=== PATIENT | male | born 1950 | race Two or more races ===

== ENCOUNTER 2016-08-02 16:50 | Inpatient (IN) | payer OTHER, MEDICARE ==
[~2016-08-02] VITALS: Ht 185.4 cm; Wt 99.0 kg
[~2016-08-02 16:50] MED LIST: BACT800T5 PO; CLIN1CAP5 PO; HYDR-3533 PO; METF-324 PO; PRIN20TA2 PO
[2016-08-13] VITALS (17 sets, daily range): BP systolic 125–162; BP diastolic 74–95; PULSE 75–112; RESP 18–20; TEMP 97.7–98.7; O2SAT 95–96
[2016-08-13] MEDS ORDERED: ceFAZolin 1,000 MG/NS 100 ML IV SCH ×2 (06:15)
[2016-08-13] MEDS ORDERED: INSULIN HUMAN REGULAR 1,000 UNITS/10 ML VIAL SQ PRN (06:30)
[2016-08-13] MEDS ORDERED: SODIUM CHLORID 0.9% 500 ML IV PRN (06:30)
[2016-08-13] MEDS ORDERED: LACTATED RINGER'S 1000 ML IV PRN (06:30)
[2016-08-13] MEDS ORDERED: CHLORHEXIDINE GLUCONATE 2 % 1 PACK (2 CLOTHS) TOPICAL PRN (06:30)
[2016-08-13] MEDS ORDERED: METOPROLOL TARTRATE 25 MG TAB PO PRN (06:30)
[2016-08-13] MEDS ORDERED: POVIDONE IODINE 5% (ANTISEPSIS KIT) 4 APPLICATIONS EACH NARE PRN (06:30)
[2016-08-13 06:48] LABS: AUTOMATED NEUTROPHIL # 8.7 TH/MM3 (1.8-7.7); BASOPHIL % 0.4 % (0.0-2.0); EOSINOPHIL # 0.2 TH/MM3 (0-0.4); EOSINOPHIL % 1.6 % (0.0-4.0); HEMATOCRIT 43.3 % (39.0-51.0); HEMO FLAGS DIFF FINAL; LYMPH % 18.9 % (9.0-44.0); LYMPHOCYTE # 2.3 TH/MM3 (1.0-4.8); MEAN CELL VOLUME 92.5 FL (80.0-100.0); MEAN CORPUSCULAR HGB CONC 32.4 % (32.0-36.0); NEUT % 71.1 % (16.0-70.0); PLATELET COUNT 231 TH/MM3 (150-450); RED BLOOD COUNT 4.68 MIL/MM3 (4.50-5.90); RED CELL DISTRIBUTION WIDTH 13.5 % (11.6-17.2); WHITE BLOOD COUNT 12.3 TH/MM3 (4.0-11.0)
[2016-08-13] MEDS ORDERED: METF500T PO (06:49)
[2016-08-13] MEDS ORDERED: BENA40TA PO (06:58)
[2016-08-13] MEDS ORDERED: NIFE60TA58 PO (06:58)
[2016-08-13] MEDS ORDERED: GLIM2TAB PO (06:58)
[2016-08-13] MEDS ORDERED: DICL50TA3 PO (06:58)
[2016-08-13] MEDS ORDERED: ATOR20TA15 PO (06:58)
[2016-08-13 06:59] LABS: APTT (PATIENT) 27.7 SEC (24.3-30.1); PROTHROMBIN TIME - PATIENT 10.8 SEC (9.8-11.6)
[2016-08-13] MEDS ORDERED: DICL50TA PO (06:59)
[2016-08-13 07:05] LABS: BICARBONATE 26.1 MEQ/L (21.0-32.0); POTASSIUM 4.2 MEQ/L (3.5-5.1)
[2016-08-13] MEDS ORDERED: HEPARIN SODIUM - IV 10,000 UNITS/10 ML VIAL ONE (07:05)
[2016-08-13] MEDS ORDERED: BUPIVACAINE/EPINEPHRINE 0.5% 50 ML VIAL ONE (07:05)
[2016-08-13] MEDS ORDERED: HEPARIN SODIUM - SQ 10,000 UNITS/ML VIAL ONE (07:05)
[2016-08-13] MEDS ORDERED: PROTAMINE SULFATE 50 MG/5 ML VIAL ONE (07:06)
[2016-08-13] MEDS ORDERED: ACETAMINOPHEN 1000 MG/100 ML VIAL IV ONE (07:33)
[2016-08-13] MEDS ORDERED: MIDAZOLAM HCL 2 MG/2 ML VIAL ONE (07:33)
[2016-08-13] MEDS ORDERED: FAMOTIDINE 20 MG/2 ML VIAL ONE (07:33)
[2016-08-13] MEDS ORDERED: fentaNYL CITRATE 250 MCG/5 ML AMP ONE (07:34)
[2016-08-13] MEDS ORDERED: HYDROmorphone HCL PF 2 MG/ML VIAL ONE (09:00)
[2016-08-13] MEDS ORDERED: IOHEXOL 300 MG/ML 50 ML BTL (for RAD DIAG) OTHER ONE (10:18)
[2016-08-13] MEDS ORDERED: ASPIRIN EC 81 MG TABEC ONE (10:58)
[2016-08-13] MEDS ORDERED: CLOPIDOGREL 300 MG TAB ONE (10:58)
[2016-08-13] MEDS ORDERED: ENOXAPARIN SODIUM 30 MG/0.3 ML SYRINGE ONE (11:13)
[2016-08-13] MEDS ORDERED: ACETAMINOPHEN/HYDROcodone 325 MG/5 MG TAB PO PRN (11:30)
[2016-08-13] MEDS ORDERED: MORPHINE SULFATE 4 MG/ML INJ IV PRN (11:30)
[2016-08-13] MEDS ORDERED: SODIUM CHLORIDE 0.9% FLUSH 10 ML FLUSH IV FLUSH PRN (11:30)
[2016-08-13] MEDS ORDERED: ACETAMINOPHEN 325 MG TAB PO PRN (11:30)
[2016-08-13] MEDS ORDERED: ONDANSETRON HCL 4 MG/2 ML VIAL IV PUSH PRN (11:30)
[2016-08-13] MEDS ORDERED: LACTATED RINGER'S 1000 ML INJ 1,000 ML IV ONE (12:00)
[2016-08-13] MEDS ORDERED: PROPOFOL 200 MG/20 ML AMP IV ONE (12:00)
[2016-08-13] MEDS ORDERED: PHENYLEPH/NS 1000 MCG/10 ML SYR IV ONE (12:00)
[2016-08-13] MEDS ORDERED: CLOPIDOGREL 300 MG TAB PO ONE (12:00)
[2016-08-13] MEDS ORDERED: ONDANSETRON HCL 4 MG/2 ML VIAL IV PUSH ONE (12:00)
[2016-08-13] MEDS ORDERED: ENOXAPARIN SODIUM 30 MG/0.3 ML SYRINGE SQ SCH (12:00)
[2016-08-13] MEDS ORDERED: DO NOT ADM ANY ANTICOAGULANT DRUGS PRN (12:00)
[2016-08-13] MEDS ORDERED: NEOSTIGMINE 3 MG/3 ML SYR IV ONE (12:00)
[2016-08-13] MEDS ORDERED: ASPIRIN EC 81 MG TABEC PO ONE (12:00)
[2016-08-13] MEDS: GLIMEPIRIDE 2 MG TAB PO SCH (12:33)
[2016-08-13] MEDS: NIFEdipine 60 MG SUSTAINED RELEASE TAB PO SCH (12:33)
[2016-08-13] MEDS: LISINOPRIL 20 MG TAB PO SCH (12:33)
[2016-08-13] MEDS ORDERED: DEXTROSE 50% IN WATER 50 ML VIAL(D50) IV PUSH PRN (12:45)
[2016-08-13] MEDS ORDERED: GLUCAGON 1 MG/ML VIAL OTHER PRN (12:45)
[2016-08-13] MEDS ORDERED: PLEASE DISCONTINUE PREVIOUS SUPPLEMENTAL SCALE INSULIN ORDERS ONE (12:45)
--- NOTE | 2016-08-13 14:34 | EKG ---
Date Performed: 08/13/2016 Time Performed: 06:49:38 PTAGE: 65 years EKG: Sinus rhythm NORMAL ECG NO PREVIOUS TRACING DOCTOR: Mando Harvey Interpretating Date/Time 08/13/2016 14:33:11
[2016-08-13] MEDS: LOW DOSE INSULIN NOVOLIN REGULAR SUPPLEMENTAL SCALE SQ SCH ×2 (16:00→21:00)
[2016-08-13] MEDS ORDERED: ATORVASTATIN 20 MG TAB PO SCH (21:00)
[2016-08-13] MEDS: SODIUM CHLORIDE 0.9% FLUSH 10 ML FLUSH IV FLUSH SCH (21:13)
[2016-08-13] MEDS: ENOXAPARIN SODIUM 30 MG/0.3 ML SYRINGE SQ SCH (23:52)
[2016-08-14] VITALS (16 sets, daily range): BP systolic 130–154; BP diastolic 74–87; PULSE 82–90; RESP 16–18; TEMP 98.2–98.5; O2SAT 96
[2016-08-14] MEDS: LOW DOSE INSULIN NOVOLIN REGULAR SUPPLEMENTAL SCALE SQ SCH ×2 (05:37→11:39)
[2016-08-14] MEDS: GLIMEPIRIDE 2 MG TAB PO SCH (08:25)
[2016-08-14] MEDS: NIFEdipine 60 MG SUSTAINED RELEASE TAB PO SCH (08:26)
[2016-08-14] MEDS: LISINOPRIL 20 MG TAB PO SCH (08:26)
[2016-08-14] MEDS: SODIUM CHLORIDE 0.9% FLUSH 10 ML FLUSH IV FLUSH SCH (08:26)
[2016-08-14] MEDS ORDERED: ASPIRIN EC 81 MG TABEC PO SCH (09:00)
[2016-08-14] MEDS: ENOXAPARIN SODIUM 30 MG/0.3 ML SYRINGE SQ SCH (11:55)
--- NOTE | 2016-08-17 17:14 | MP ---
cc: ADAM WATERS DATE OF SURGERY: 08/13/2016 NOTE: This is a re-dictation of the note dictated on August 13. 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 PREOPERATIVE DIAGNOSIS: Lifestyle-limiting right lower extremity claudication. POSTOPERATIVE DIAGNOSIS: Lifestyle-limiting right lower extremity claudication. OPERATIVE PROCEDURE PERFORMED: Right femoral-popliteal bypass with intraoperative arteriograms. SURGEON: Adam Waters M.D. ANESTHESIA: General endotracheal / local. HISTORY: This gentleman has lifestyle-limiting bilateral lower extremity claudication. CT angiographic evaluation disclosed TASC-D occlusion of the right superficial femoral artery -- not amenable to endovascular revascularization with any hope of long-term patency. Preoperative venous mapping disclosed a greater saphenous vein of inadequate luminal dimensions for use as an arterial conduit. Thus, a prosthetic above-knee reconstruction was accomplished. DESCRIPTION OF THE PROCEDURE IN DETAIL: With the patient in the supine position general endotracheal anesthesia was induced. The lower abdomen, both groins and the entire right lower extremity were prepped with Betadine and draped in a sterile fashion. One gram of Ancef was administered prophylactically. Following a protocol time-out, the skin and subcutaneous tissue along the proposed incisional areas was preemptively infiltrated with 0.5% Marcaine with epinephrine. A vertical approximately 5 cm incision was performed along the distal medial thigh. The popliteal space was entered and the popliteal artery mobilized from the adductor level to the knee joint. The popliteal artery was cannulated with an 18-gauge butterfly needle. Diluted contrast was injected in conjunction with digital C-arm fluoroscopic imaging; this confirmed a widely patent popliteal artery with uninterrupted two-vessel runoff to the right foot. Skin and subcutaneous tissue within the right inguinal area was infiltrated with 0.5% Marcaine with epinephrine. An oblique incision was performed along Dmitriy's lines within the right inguinal skin crease and deepened through the subcutaneous tissue. The common superficial and profunda femoral arteries were circumferentially mobilized and encircled with double-looped Vesseloops. The patient was systemically heparinized with 5000 units. The popliteal artery was concentrically calcified throughout. A combination of double-looped Vesseloops and Yasargil clips was utilized to atraumatically occlude the popliteal artery at the adductor and knee joint levels. A 2-cm arteriotomy was performed along the anteromedial surface. A 6-mm reinforced Propaten PTFE graft was spatulated on-end and anastomosed end-to-side to the arteriotomy with continuous 6-0 Prolene. The graft was tunneled and sub-sartorially to the femoral exposure site. The graft was occluded immediately proximal to the popliteal anastomosis and flow restored to the [place] popliteal artery. The distal external iliac was occluded with a small Satinsky clamp and the profunda with a double-looped Vesseloop. A vertical arteriotomy was performed at the junction of the external and common femoral arteries (due to severe concentric calcification within the more distal common femoral). The graft was trimmed to appropriate length, spatulated on-end and anastomosed end-to-side to the common femoral arteriotomy with continuous 6-0 Prolene. Prior to placement of the final sutures, the [place] arterial and graft lumens were appropriately flushed. Final sutures were placed and tied. Pulsatile flow was restored as confirmed by significant augmentation of Doppler signal distal to the popliteal anastomosis. Heparin was reversed with 20 mg of protamine. Strict hemostasis was assured. The two incisions were closed with three separate layers of continuous 4-0 Monocryl. Skin was reapproximated with continuous subcuticular 5-0 Monocryl, reinforced with Steri-Strips and covered with gauze. At the conclusion of the procedure, the right dorsalis pedis pulse was easily palpable with triphasic Doppler flow. There were no operative complications. Instrument, needle, sponge count correct x2. The patient returned to the recovery room in stable condition having tolerated procedure well. MD THEE Dill/LEXX /9:50 AM /5:01 PM
== END 2016-08-14 14:53 | disposition home or self-care (01) | DRG 254 ==
LOC: HSDI 08-13 05:55 → HCIN 08-13 11:40
PROVIDERS: ADMIT Surgery Vascular Surgery; ATTEND Surgery Vascular Surgery
PROC: B41FYZZ Fluoroscopy of Right Lower Extremity Arteries using Other Contrast (ICD-10-PCS; 2016-08-13)
PROC: 041K0JL Bypass Right Femoral Artery to Popliteal Artery with Synthetic Substitute, Open Approach (ICD-10-PCS; principal; 2016-08-13 07:47)
DX: I70.211 Atherosclerosis of native arteries of extremities with intermittent claudication, right leg (principal); E11.42 Type 2 diabetes mellitus with diabetic polyneuropathy; I10 Essential (primary) hypertension; I71.4 Abdominal aortic aneurysm, without rupture; E78.00 Pure hypercholesterolemia, unspecified; K21.9 Gastro-esophageal reflux disease without esophagitis; F17.210 Nicotine dependence, cigarettes, uncomplicated; Z79.84 Long term (current) use of oral hypoglycemic drugs
CPT/HCPCS: 80048; 82948; 85025; 85610; 85730; 86850; 86900; 86901; 93005; C1768; J0131; J0690; J1170; J1644; J1650; J2250; J2370; J2405; J2710; J2720; J3010; J7120; Q9967

== ENCOUNTER 2016-12-05 13:00 | Inpatient (IN) | payer OTHER, MEDICARE ==
[~2016-12-05] VITALS: Ht 185.4 cm; Wt 95.9 kg
[~2016-12-05 13:00] MED LIST changes: +ATOR20TA15 PO; -BACT800T5 PO; +BENA40TA PO; -CLIN1CAP5 PO; +DICL50TA PO; +GLIM2TAB PO; -HYDR-3533 PO; -METF-324 PO; +METF500T PO; +NIFE60TA58 PO; -PRIN20TA2 PO
[2016-12-05 13:03] VITALS: BP 140/86; PULSE 93; RESP 17; TEMP 98.5; O2SAT 98
--- NOTE | 2016-12-05 13:20 | PD ---
Physical Exam Date Seen by Provider: Dec 05, 2016 Time Seen by Provider: 13:18 Narrative 66 YOWM C/O FOOT PAIN AND PAIN. DR MOISE R FEM POP. WORSE 1 WEEK. R 3RD TOE DISCOLORATION VS NOTED WAITING FOR BED PLACEMENT Data Data Last Documented VS Vital Signs Date Time Temp Pulse Resp B/P (MAP) Pulse Ox O2 Delivery O2 Flow Rate FiO2 12/05/16 13:03 98.5 93 17 140/86 (104) 98 Room Air [facility] Medical Record Reviewed: No Supervised Visit with PATRICK: Yes Bhanu Marquez Dec 05, 2016 13:20
[2016-12-05] MEDS ORDERED: ONDANSETRON HCL 4 MG/2 ML VIAL IV PUSH ONE (14:15)
[2016-12-05] MEDS ORDERED: MORPHINE SULFATE 4 MG/ML INJ IV PUSH ONE (14:15)
--- NOTE | 2016-12-05 14:18 | PD ---
HPI Chief Complaint: Pain: Acute or Chronic Time Seen by Provider: 14:05 Travel History International Travel<30 days: No Contact w/Intl Traveler<30days: No Traveled to known affect area: No History of Present Illness HPI 66-year-old male with history of PVD, diabetes, hypertension who presents for evaluation of right foot pain. Symptoms started spontaneously one week ago. He describes it as a sharp pain like he is stepping on glass. The pain is constant but worse with walking. Pain is worst in the right third and fifth toes. He has noticed some discoloration on the plantar aspect of the third and fifth toes. He reports history of right femoral-popliteal bypass with intraoperative arteriograms performed on August [address] Waters. He was seen today by his primary care physician Dr. Rueda and referred to the emergency room. He also called Dr. Nichols' office however Dr. Waters is out of the country and he was referred to the emergency room. He denies fevers , chills. He has no other complaints. PFSH Past Medical History High Cholesterol: Yes Diabetes: Yes Patient Takes Glucophage: No Hypertension: Yes Tetanus Vaccination: Unknown Past Surgical History Other Surgery: Yes (VASCULAR SURGERY 08/17/2016) Social History Alcohol Use: Yes (OCCASIONAL) Tobacco Use: Yes Substance Use: No Allergies-Medications (Allergen,Severity, Reaction): Coded Allergies: No Known Allergies (Unverified , 01/22/14) Reported Meds & Prescriptions Reported Meds & Active Scripts Active Reported Diclofenac Potassium 50 Mg Tab 50 Mg PO DAILY Glimepiride 2 Mg Tab 2 Mg PO DAILY Take with breakfast or first main meal Atorvastatin (Atorvastatin Calcium) 20 Mg Tab 20 Mg PO HS Benazepril (Benazepril HCl) 40 Mg Tab 40 Mg PO DAILY Nifedipine ER 24 HR (Nifedipine) 60 Mg Tab 60 Mg PO DAILY Metformin (Metformin HCl) 500 Mg Tab 500 Mg PO BIDPC With meals Review of Systems Except as stated in HPI: all other systems reviewed are Neg Physical Exam Narrative GENERAL: Well-developed well-nourished male in no acute distress SKIN: Warm and dry. The plantar aspect of the right third and fifth toes appear somewhat dusky. No open wounds. No erythema. H&P. HEAD: Atraumatic. Normocephalic. EYES: Pupils equal and round. No scleral icterus. No injection or drainage. ENT: No nasal bleeding or discharge. Mucous membranes pink and moist. NECK: Trachea midline. No JVD. CARDIOVASCULAR: Regular rate and rhythm. No murmur appreciated. RESPIRATORY: No accessory muscle use. Clear to auscultation. Breath sounds equal bilaterally. GASTROINTESTINAL: Abdomen soft, non-tender, nondistended. Hepatic and splenic margins not palpable. MUSCULOSKELETAL: No obvious deformities. Skin as noted above. The patient's dorsalis pedis and posterior tibial pulses are not dopplerable on the right foot but are easily dopplerable on the left foot. The right femoral artery is dopplerable. There is no tenderness to palpation to the right thigh or calf. NEUROLOGICAL: Awake and alert. No obvious cranial nerve deficits. Motor grossly within normal limits. Normal speech. Data Data Last Documented VS Vital Signs Date Time Temp Pulse Resp B/P (MAP) Pulse Ox O2 Delivery O2 Flow Rate FiO2 12/05/16 15:16 84 17 164/72 (102) 12/05/16 13:03 98.5 98 Room Air Orders Orders Complete Blood Count With Diff (12/05/16 14:08) Basic Metabolic Panel (Bmp) (12/05/16 14:08) Act Partial Throm Time (Ptt) (12/05/16 14:08) Prothrombin Time / Inr (Pt) (12/05/16 14:08) Iv Access Insert/Monitor (12/05/16 14:08) Morphine Inj (Morphine Inj) (12/05/16 14:15) Ondansetron Inj (Zofran Inj) (12/05/16 14:15) Consult Vascular Surgery (12/05/16 ) Cta Runoff W Iv Contrast W 3d (12/05/16 ) (Hub Use Only)Inp Phy Cons/Ref (12/05/16 ) Admit Order (Ed Use Only) (12/05/16 15:14) Labs Laboratory Tests Test 12/05/16 14:20 White Blood Count 11.3 TH/MM3 Red Blood Count 4.45 MIL/MM3 Hemoglobin 13.5 GM/DL Hematocrit 41.8 % Mean Corpuscular Volume 93.8 FL Mean Corpuscular Hemoglobin 30.4 PG Mean Corpuscular Hemoglobin Concent 32.4 % Red Cell Distribution Width 13.5 % Platelet Count 252 TH/MM3 Mean Platelet Volume 8.1 FL Neutrophils (%) (Auto) 58.6 % Lymphocytes (%) (Auto) 30.1 % Monocytes (%) (Auto) 9.1 % Eosinophils (%) (Auto) 1.6 % Basophils (%) (Auto) 0.6 % Neutrophils # (Auto) 6.6 TH/MM3 Lymphocytes # (Auto) 3.4 TH/MM3 Monocytes # (Auto) 1.0 TH/MM3 Eosinophils # (Auto) 0.2 TH/MM3 Basophils # (Auto) 0.1 TH/MM3 CBC Comment DIFF FINAL Differential Comment Prothrombin Time 11.2 SEC Prothromb Time International Ratio 1.0 RATIO Activated Partial Thromboplast Time 26.4 SEC Blood Urea Nitrogen 28 MG/DL Creatinine 1.30 MG/DL Random Glucose 62 MG/DL Calcium Level 9.5 MG/DL Sodium Level 142 MEQ/L Potassium Level 4.3 MEQ/L Chloride Level 110 MEQ/L Carbon Dioxide Level 25.0 MEQ/L Anion Gap 7 MEQ/L Estimat Glomerular Filtration Rate 55 ML/MIN MDM Medical Decision Making Medical Screen Exam Complete: Yes Emergency Medical Condition: Yes Medical Record Reviewed: Yes Differential Diagnosis Acute arterial occlusion, peripheral vascular disease, cellulitis Narrative Course I discussed the case with the on-call vascular surgeon Dr. Alfonso who will come and see the patient. He will order a CTA with runoff and recommends admission to the hospitalist group. He will follow-up on the CT results. He does not recommend heparin. Discussed with Dr. Mars who is agreeable with admission. Diagnosis Primary Impression: Peripheral vascular disease Additional Impression: Claudication Admitting Information Admitting Physician Requests: Admit Jay Whitney Dec 05, 2016 14:18
[2016-12-05 14:37] LABS: AUTOMATED NEUTROPHIL # 6.6 TH/MM3 (1.8-7.7); BASOPHIL # 0.1 TH/MM3 (0-0.2); BASOPHIL % 0.6 % (0.0-2.0); EOSINOPHIL # 0.2 TH/MM3 (0-0.4); EOSINOPHIL % 1.6 % (0.0-4.0); HEMATOCRIT 41.8 % (39.0-51.0); HEMO FLAGS DIFF FINAL; LYMPH % 30.1 % (9.0-44.0); LYMPHOCYTE # 3.4 TH/MM3 (1.0-4.8); MEAN CELL VOLUME 93.8 FL (80.0-100.0); MEAN CORPUSCULAR HEMOGLOBIN 30.4 PG (27.0-34.0); MEAN CORPUSCULAR HGB CONC 32.4 % (32.0-36.0); MONO % 9.1 % (0.0-8.0); NEUT % 58.6 % (16.0-70.0); PLATELET COUNT 252 TH/MM3 (150-450); RED BLOOD COUNT 4.45 MIL/MM3 (4.50-5.90); RED CELL DISTRIBUTION WIDTH 13.5 % (11.6-17.2); WHITE BLOOD COUNT 11.3 TH/MM3 (4.0-11.0)
[2016-12-05 14:49] LABS: APTT (PATIENT) 26.4 SEC (24.3-30.1); PROTHROMBIN TIME - PATIENT 11.2 SEC (9.8-11.6)
[2016-12-05 14:51] LABS: POTASSIUM 4.3 MEQ/L (3.5-5.1)
[2016-12-05 15:16] VITALS: BP 164/72; PULSE 84; RESP 17
[2016-12-05] MEDS ORDERED: BISACODYL 10 MG SUPP RECTAL PRN (15:30)
[2016-12-05] MEDS ORDERED: SODIUM CHLORIDE 0.9% FLUSH 10 ML FLUSH IV FLUSH PRN (15:30)
[2016-12-05] MEDS ORDERED: ACETAMINOPHEN/HYDROcodone 325 MG/7.5 MG TAB PO PRN (15:30)
[2016-12-05] MEDS ORDERED: MORPHINE SULFATE 4 MG/ML INJ IV PRN ×2 (15:30→23:45)
[2016-12-05] MEDS ORDERED: NALOXONE HCL 0.4 MG/ML AMP IV PRN (15:30)
[2016-12-05] MEDS ORDERED: SENNOSIDES 8.6 MG TAB PO PRN (15:30)
[2016-12-05] MEDS ORDERED: ACETAMINOPHEN/HYDROcodone 325 MG/5 MG TAB PO PRN (15:30)
[2016-12-05] MEDS ORDERED: ONDANSETRON HCL 4 MG/2 ML VIAL IVP PRN (15:30)
[2016-12-05] MEDS ORDERED: MAGNESIUM HYDROXIDE SUSP 30 ML CUP PO PRN (15:30)
[2016-12-05 15:32] VITALS: O2SAT 95
[2016-12-05] MEDS ORDERED: IOHEXOL 350 MG/ML 10 ML VIAL (for RAD DIAG) IVCONTRAST ONE (15:45)
[2016-12-05] MEDS ORDERED: SODIUM CHLOR 0.9% 1000 ML INJ 1,000 ML IV SCH (16:00)
[2016-12-05] MEDS ORDERED: HEPARIN SODIUM - SQ 10,000 UNITS/ML VIAL SQ SCH (16:00)
--- NOTE | 2016-12-05 16:33 | PD.CAR.PN ---
CVT Progress Note Subjective/Hospital Course: Patient seen and evaluated Full consult dictated Ischemia of the right leg probably due to femoropopliteal bypass occlusion CTA with runoff pending Will tailor therapy based on the finding of the CTA Shawn Hayes Objective: Vital Signs Date Time Temp Pulse Resp B/P (MAP) Pulse Ox O2 Delivery O2 Flow Rate FiO2 12/05/16 15:32 95 21 12/05/16 15:16 84 17 164/72 (102) 12/05/16 13:03 98.5 93 17 140/86 (104) 98 Room Air Labs: Laboratory Tests Test 12/05/16 14:20 White Blood Count 11.3 TH/MM3 (4.0-11.0) Red Blood Count 4.45 MIL/MM3 (4.50-5.90) Hemoglobin 13.5 GM/DL (13.0-17.0) Hematocrit 41.8 % (39.0-51.0) Mean Corpuscular Volume 93.8 FL (80.0-100.0) Mean Corpuscular Hemoglobin 30.4 PG (27.0-34.0) Mean Corpuscular Hemoglobin Concent 32.4 % (32.0-36.0) Red Cell Distribution Width 13.5 % (11.6-17.2) Platelet Count 252 TH/MM3 (150-450) Mean Platelet Volume 8.1 FL (7.0-11.0) Neutrophils (%) (Auto) 58.6 % (16.0-70.0) Lymphocytes (%) (Auto) 30.1 % (9.0-44.0) Monocytes (%) (Auto) 9.1 % (0.0-8.0) Eosinophils (%) (Auto) 1.6 % (0.0-4.0) Basophils (%) (Auto) 0.6 % (0.0-2.0) Neutrophils # (Auto) 6.6 TH/MM3 (1.8-7.7) Lymphocytes # (Auto) 3.4 TH/MM3 (1.0-4.8) Monocytes # (Auto) 1.0 TH/MM3 (0-0.9) Eosinophils # (Auto) 0.2 TH/MM3 (0-0.4) Basophils # (Auto) 0.1 TH/MM3 (0-0.2) CBC Comment DIFF FINAL Differential Comment Prothrombin Time 11.2 SEC (9.8-11.6) Prothromb Time International Ratio 1.0 RATIO Activated Partial Thromboplast Time 26.4 SEC (24.3-30.1) Blood Urea Nitrogen 28 MG/DL (7-18) Creatinine 1.30 MG/DL (0.60-1.30) Random Glucose 62 MG/DL (74-106) Calcium Level 9.5 MG/DL (8.5-10.1) Sodium Level 142 MEQ/L (136-145) Potassium Level 4.3 MEQ/L (3.5-5.1) Chloride Level 110 MEQ/L (98-107) Carbon Dioxide Level 25.0 MEQ/L (21.0-32.0) Anion Gap 7 MEQ/L (5-15) Estimat Glomerular Filtration Rate 55 ML/MIN (>89) Result Diagram: 12/05/16 1420 12/05/16 1420 Beatriz Alfonso MD Dec 05, 2016 16:33
--- NOTE | 2016-12-05 16:56 | PD ---
Data Data Last Documented VS Vital Signs Date Time Temp Pulse Resp B/P (MAP) Pulse Ox O2 Delivery O2 Flow Rate FiO2 12/05/16 15:16 84 17 164/72 (102) 12/05/16 13:03 98.5 98 Room Air Orders Orders Complete Blood Count With Diff (12/05/16 14:08) Basic Metabolic Panel (Bmp) (12/05/16 14:08) Act Partial Throm Time (Ptt) (12/05/16 14:08) Prothrombin Time / Inr (Pt) (12/05/16 14:08) Iv Access Insert/Monitor (12/05/16 14:08) Morphine Inj (Morphine Inj) (12/05/16 14:15) Ondansetron Inj (Zofran Inj) (12/05/16 14:15) Consult Vascular Surgery (12/05/16 ) Cta Runoff W Iv Contrast W 3d (12/05/16 ) (Hub Use Only)Inp Phy Cons/Ref (12/05/16 ) Admit Order (Ed Use Only) (12/05/16 15:14) Labs Laboratory Tests Test 12/05/16 14:20 White Blood Count 11.3 TH/MM3 Red Blood Count 4.45 MIL/MM3 Hemoglobin 13.5 GM/DL Hematocrit 41.8 % Mean Corpuscular Volume 93.8 FL Mean Corpuscular Hemoglobin 30.4 PG Mean Corpuscular Hemoglobin Concent 32.4 % Red Cell Distribution Width 13.5 % Platelet Count 252 TH/MM3 Mean Platelet Volume 8.1 FL Neutrophils (%) (Auto) 58.6 % Lymphocytes (%) (Auto) 30.1 % Monocytes (%) (Auto) 9.1 % Eosinophils (%) (Auto) 1.6 % Basophils (%) (Auto) 0.6 % Neutrophils # (Auto) 6.6 TH/MM3 Lymphocytes # (Auto) 3.4 TH/MM3 Monocytes # (Auto) 1.0 TH/MM3 Eosinophils # (Auto) 0.2 TH/MM3 Basophils # (Auto) 0.1 TH/MM3 CBC Comment DIFF FINAL Differential Comment Prothrombin Time 11.2 SEC Prothromb Time International Ratio 1.0 RATIO Activated Partial Thromboplast Time 26.4 SEC Blood Urea Nitrogen 28 MG/DL Creatinine 1.30 MG/DL Random Glucose 62 MG/DL Calcium Level 9.5 MG/DL Sodium Level 142 MEQ/L Potassium Level 4.3 MEQ/L Chloride Level 110 MEQ/L Carbon Dioxide Level 25.0 MEQ/L Anion Gap 7 MEQ/L Estimat Glomerular Filtration Rate 55 ML/MIN MDM Supervised Visit with PATRICK: Yes Narrative Course The history, exam, and medical decision-making in the associated midlevel provider note were completed with my assistance. I reviewed and agree with the findings presented. I attest that I had a [id number] encounter with the patient on the same day, and personally performed and documented my assessment and findings in the medical record. *My assessment and Findings: This is a 66-year-old male who has a history of a femoropopliteal bypass who presents to the emergency department with some pain and coolness of his right foot. On exam were unable to Doppler DP pulse in the right foot and the foot feels cooler than the left. We discussed the case with vascular and Dr. Abraham came to see the patient and a CTA was ordered. Pt. was admitted. Diagnosis Primary Impression: Peripheral vascular disease Additional Impression: Claudication Rubina Floyd MD Dec 05, 2016 16:56
--- NOTE | 2016-12-05 17:01 | RADRPT ---
EXAM DATE/TIME: 12/05/2016 15:25 [place] COMPARISON: No previous studies available for comparison. INDICATIONS : Lower leg pain, post operation fem-pop graft. IV CONTRAST: 89 cc Omnipaque 350 (iohexol) IV RADIATION DOSE: 2.69 CTDIvol (mGy) MEDICAL HISTORY : Hypertension. Diabetes mellitus type 2. SURGICAL HISTORY : lower leg artery graft. ENCOUNTER: Initial ACUITY: 2 weeks PAIN SCALE: 3/10 LOCATION: Right lower leg. TECHNIQUE: Volumetric scanning was performed using a multi-row detector CT scanner. The data was post processed with a variety of visualization algorithms including full volume maximum intensity projection, multi -planar sliding thin slab reformation, curved planar reformation, and surface rendering techniques. Using automated exposure control and adjustment of the mA and/or kV according to patient size, radiat ion dose was kept as low as reasonably achievable to obtain optimal diagnostic quality images. DICO M format image data is available electronically for review and comparison. FINDINGS: The abdominal aorta is notable for moderate atheromatous irregularity and patchy intimal calcificatio n. 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 The visceral vessels are patent. There is moderate diffuse atherosclerotic disease in the iliacs with mild calcific stenosis involving the proximal right external iliac. The common femorals are densely calcified but patent. In the right leg, the [place] superficial femoral artery is occluded. The profunda is patent. A synthe tic femoral to above knee popliteal bypass graft is noted and is occluded. The popliteal artery at an d just below the anastomosis is occluded. Flow reconstitutes at the knee joint level. In the calf, th e peritoneal and posterior tibial vessels are intact to the foot. The anterior tibial is occluded. In the contralateral left leg, the profunda is patent. The superficial femoral artery is patent with moderate diffuse disease. The popliteal artery is intact. Adequate 3 vessel left calf runoff is prese nt. CONCLUSION: Right femoropopliteal bypass is occluded. The popliteal artery at and below the anastomosis is occlud ed. Flow reconstitutes in the below knee popliteal. 2 vessel right calf runoff. Maciel Manuel MD on December 05, 2016 at 16:48 Board Certified Radiologist. This report was verified electronically.
[2016-12-05 17:52] VITALS: BP 142/70; PULSE 74; RESP 17
[2016-12-05] MEDS ORDERED: MIDAZOLAM HCL 5 MG/5 ML VIAL ONE (18:20)
[2016-12-05] MEDS ORDERED: HEPARIN SODIUM - IV 10,000 UNITS/10 ML VIAL ONE (18:21)
[2016-12-05] MEDS ORDERED: HEPARIN-D5W 25,000 U/250 ML 250 ML ONE (19:18)
--- NOTE | 2016-12-05 19:25 | PD.RAD ---
Post Procedure Progress Note Pre Procedure Diagnosis: (1) Peripheral vascular disease (2) Thrombosis of arteries of lower extremity Post Procedure Diagnosis: (1) Peripheral vascular disease (2) Thrombosis of arteries of lower extremity Procedure Date: Dec 05, 2016 Supervising Radiologist: Maciel Manuel Proceduralist/Assist: RT Autumn(R) Anesthesia: Local, Conscious Sedation Plan of Activity Patient to Unit: PACU Patient Condition: Fair See PACS Report for procedural detail/treatment Vascular-Arterial Procedure Procedure 1 Procedure Site: Right Leg Procedure(s): Angiogram, Thrombolysis Access Access Site(s): Left Femoral Artery Sheath(s) Remaining: Left Femoral Artery Treament Area: right fem-pop bypass graft and [place] popliteal artery Maciel Manuel MD Dec 05, 2016 19:25
[2016-12-05] MEDS ORDERED: ALTEPLASE RECOMBINANT 2 MG VIAL I-ARTERIAL ONE (19:45)
[2016-12-05] MEDS ORDERED: IODIXANOL 320 MG/ML 50 ML VIAL (for RAD SPEC) I-ARTERIAL ONE (19:45)
[2016-12-05] MEDS ORDERED: DO NOT ADM ANY ANTICOAGULANT DRUGS PRN (20:10)
--- NOTE | 2016-12-05 20:45 | MB ---
cc: BEATRIZ GONZALEZ MD DATE OF CONSULTATION 12/05/2016 REASON FOR CONSULTATION Ischemia of the right leg. HISTORY OF PRESENT ILLNESS This 66-year-old gentleman with past medical history of diabetes and peripheral vascular disease underwent right femoral-popliteal bypass about three months ago by my colleague, Dr. Waters. The patient did well postoperatively until about a week ago. He describes having had some sharp pain in his right foot and this got worse. The pain was mainly on the lateral aspect of the foot, but now has become more prominent and foot turns sort of purple. So he came to his primary physician, Dr. Rueda, who referred him to the emergency room. I am here to evaluate the patient for the same because I am covering for Dr. Waters over the weekend, PAST MEDICAL HISTORY 1. Hypercholesteremia, 2. Diabetes mellitus, 3. Hypertension PAST SURGICAL HISTORY Right femoral-popliteal bypass with PTFE graft on August 17 of this year so I guess four months ago. SOCIAL HISTORY The patient smokes about one pack a day, has not stopped, and drinks socially. MEDICATIONS Can be found on the record. PHYSICAL EXAMINATION GENERAL: A 66-year-old male in no acute distress. HEENT: Normocephalic. No trauma to the head. Pupils equally reactive. Extraocular muscles intact. NECK: Supple, bilateral carotid pulses. No bruits. CHEST: Clear, bilateral breath sounds. HEART: Regular rhythm. ABDOMEN: Soft. Active bowel sounds. No rebound or guarding. No masses. EXTREMITIES: The patient has palpable femoral pulses bilateral. He has dopplerable strong left popliteal pulse and dorsalis pedis posterior tibial. on the right side, the patient has no pulses beyond the femoral. foot is cool but still somewhat perfused with dependent rubor elevation pallor. Doppler reveals occlusion of the right femoral-popliteal bypass graft and possible popliteal artery. The patient will undergo CTA with runoff and then based ob the findings, we will decide which way to go. Fortunately, the patient's neurologic status is still intact. He cab feel his foot and has normal range of motion. Based on the CTA findings, the patient will undergo either TPA lysis or some more invasive procedure. Critical care time 40 minutes. Beatriz ANGUIANO 8:18 PM 8:32 PM
[2016-12-05] MEDS: SODIUM CHLORIDE 0.9% FLUSH 10 ML FLUSH IV FLUSH SCH (21:00)
[2016-12-05] MEDS: DOCUSATE SODIUM 50 MG/SENNA 8.6 MG TAB PO SCH (21:00)
[2016-12-05 22:56] LABS: AUTOMATED NEUTROPHIL # 11.3 TH/MM3 (1.8-7.7); BASOPHIL # 0.1 TH/MM3 (0-0.2); BASOPHIL % 0.6 % (0.0-2.0); EOSINOPHIL # 0.2 TH/MM3 (0-0.4); EOSINOPHIL % 1.1 % (0.0-4.0); HEMO FLAGS DIFF FINAL; LYMPH % 13.9 % (9.0-44.0); MEAN CELL VOLUME 93.3 FL (80.0-100.0); MEAN CORPUSCULAR HEMOGLOBIN 30.2 PG (27.0-34.0); MEAN CORPUSCULAR HGB CONC 32.3 % (32.0-36.0); MONO % 6.9 % (0.0-8.0); NEUT % 77.5 % (16.0-70.0); PLATELET COUNT 226 TH/MM3 (150-450); RED BLOOD COUNT 4.18 MIL/MM3 (4.50-5.90); RED CELL DISTRIBUTION WIDTH 13.6 % (11.6-17.2); WHITE BLOOD COUNT 14.5 TH/MM3 (4.0-11.0)
--- NOTE | 2016-12-05 23:01 | HHI.HP ---
[facility] Service [facility] Primary Care Physician Dr. Rueda . Admission Diagnosis peripheral vascular disease with claudication Diagnoses: (1) Thrombosis of arteries of lower extremity (2) Peripheral vascular disease (3) Claudication Chief Complaint: severe right foot pain Travel History International Travel<30 Days: No Contact w/Intl Traveler <30 Da: No Traveled to Known Affected Are: No History of Present Illness Written by Yesica Klein, acting as scribe for Dr. Redding on 12/05/16 at 23:01. Severe right foot pain with skin color changes. The pain has been present for 1 week. He also noted a "sore" on the side of the foot. July 2016: fem/pop bypass by Dr. Waters. Denies any recent black or red stool, hematuria, nausea, vomiting. . Review of Systems Except as stated in HPI: all other systems reviewed are Neg Past Family Social History Past Medical History Hypertension Diabetes Denies CAD, CHF, irregular heart rhythm, COPD/Asthma/Emphysema, liver problems, kidney problems Past Surgical History Fem/pop bypass July 2016 Reported Medications Reported Meds & Active Scripts Active Reported Diclofenac Potassium 50 Mg Tab 50 Mg PO DAILY Glimepiride 2 Mg Tab 2 Mg PO DAILY Take with breakfast or first main meal Atorvastatin (Atorvastatin Calcium) 20 Mg Tab 20 Mg PO HS Benazepril (Benazepril HCl) 40 Mg Tab 40 Mg PO DAILY Nifedipine ER 24 HR (Nifedipine) 60 Mg Tab 60 Mg PO DAILY Metformin (Metformin HCl) 500 Mg Tab 500 Mg PO BIDPC With meals . Allergies: Coded Allergies: No Known Allergies (Unverified , 01/22/14) Active Ordered Medications Current Medications Morphine Sulfate (Morphine Inj) 4 mg ONCE ONCE IV PUSH Last administered on 15:07; Start 12/05/16 at 14:15; Stop 12/05/16 at 14:16; Status DC Ondansetron HCl (Zofran Inj) 4 mg ONCE ONCE IV PUSH Last administered on 15:05; Start 12/05/16 at 14:15; Stop 12/05/16 at 14:16; Status DC Sodium Chloride 1,000 ml @ 100 mls/hr Q10H IV Last administered on 12/05/16 16 :22; Start 12/05/16 at 16:00 Sodium Chloride (NS Flush) 2 ml UNSCH PRN IV FLUSH FLUSH AFTER USING IV ACCESS ; Start 12/05/16 at 15:30 Sodium Chloride (NS Flush) 2 ml BID IV FLUSH ; Start 12/05/16 at 21:00 Acetaminophen (Tylenol) 650 mg Q4H PRN PO TEMP > 100.4; Start 12/05/16 at 15:30 Ondansetron HCl (Zofran Inj) 4 mg Q6H PRN IVP NAUSEA OR VOMITING; Start at 15:30 Heparin Sodium (Porcine) (Heparin Inj) 5,000 units Q8H SQ Last administered on 12/05/16 16:28; Start 12/05/16 at 16:00 Acetaminophen/ Hydrocodone Bitart ([place] 5-325 Mg) 1 tab Q4H PRN PO PAIN SCALE 3 TO 5; Start 12/05/16 at 15:30 Acetaminophen/ Hydrocodone Bitart ([place] 7.5-325 Mg) 1 tab Q4H PRN PO PAIN SCALE 6 TO 10; Start 12/05/16 at 15:30 Morphine Sulfate (Morphine Inj) 4 mg Q3H PRN IV BREAKTHROUGH PAIN Last administered on 12/05/16 22:52; Start 12/05/16 at 15:30 Naloxone HCl (Narcan Inj) 0.4 mg UNSCH PRN IV SEE LABEL COMMENTS; Start at 15:30 Senna/Docusate Sodium (Magali-Colace) 1 tab BID PO ; Start 12/05/16 at 21:00 Magnesium Hydroxide (Milk Of Magnesia Liq) 30 ml Q12H PRN PO MILD - MODERATE CONSTIPATION; Start 12/05/16 at 15:30 Sennosides (Senokot) 17.2 mg Q12H PRN PO MODERATE - SEVERE CONSTIPATION; Start 12/05/16 at 15:30 Bisacodyl (Dulcolax Supp) 10 mg DAILY PRN RECTAL SEVERE CONSITIPATION; Start at 15:30 Iohexol (Omnipaque 350 Inj) 89 ml STK-MED ONCE IVCONTRAST Last administered on 12/05/16 15:45; Start 12/05/16 at 15:45; Stop 12/05/16 at 15:46; Status DC Midazolam HCl (Versed Inj) 5 mg STK-MED ONCE .ROUTE Last administered on 19:45; Start 12/05/16 at 18:20; Stop 12/05/16 at 18:21; Status DC Fentanyl Citrate (fentaNYL INJ) 100 mcg STK-MED ONCE .ROUTE Last administered on 12/05/16 19:45; Start 12/05/16 at 18:20; Stop 12/05/16 at 18:21; Status DC Fentanyl Citrate (fentaNYL INJ) 100 mcg STK-MED ONCE .ROUTE Last administered on 12/05/16 19:45; Start 12/05/16 at 18:20; Stop 12/05/16 at 18:21; Status DC Heparin Sodium (Porcine) (Heparin Inj) 10,000 units STK-MED ONCE .ROUTE ; Start 12/05/16 at 18:21; Stop 12/05/16 at 18:22; Status DC Heparin Sodium/ Dextrose 250 ml @ As Directed STK-MED ONCE .ROUTE ; Start at 19:18; Stop 12/05/16 at 19:19; Status DC Iodixanol (VISIPAQUE 320 INJ (Rad Spec)) 60 ml STK-MED ONCE I-ARTERIAL Last administered on 12/05/16 19:45; Start 12/05/16 at 19:45; Stop 12/05/16 at 19:46; Status DC Miscellaneous Information ALL NURSING DEPARTME... UNSCH PRN .XX SEE LABEL COMMENTS; Start 12/05/16 at 20:10; Stop 12/06/16 at 20:09 . Family History Father with diabetes mellitus Denies family history of PVD or CAD . Social History Tobacco: smokes 1 PPD Alcohol: seldom Illicit Drugs: denies . Physical Exam Vital Signs Vital Signs Date Time Temp Pulse Resp B/P (MAP) Pulse Ox O2 Delivery O2 Flow Rate FiO2 12/05/16 21:30 84 12 156/78 (104) 93 Room Air 12/05/16 21:15 83 14 159/77 (104) 94 Room Air 12/05/16 21:00 83 14 172/82 (112) 96 Room Air 12/05/16 20:45 84 12 161/78 (105) 93 Room Air 12/05/16 20:30 83 14 165/74 (104) 96 Room Air 12/05/16 20:15 98.2 88 14 166/78 (107) 96 Room Air 12/05/16 17:52 74 17 142/70 (94) 12/05/16 15:32 95 21 12/05/16 15:21 12/05/16 15:16 84 17 164/72 (102) 12/05/16 13:03 98.5 93 17 140/86 (104) 98 Room Air Physical Exam GENERAL: This is a well-nourished, well-developed patient, in significant pain - medicated with IV morphine minutes b4 visit. SKIN: No rashes, ecchymoses or lesions. Cool and dry. HEAD: Atraumatic. Normocephalic. No temporal or scalp tenderness. EYES: No scleral icterus. No injection or drainage. ENT: Nose without bleeding, purulent drainage or septal hematoma. Uvula midline. Airway patent. NECK: Trachea midline. No JVD or lymphadenopathy. Supple, nontender, no meningeal signs. CARDIOVASCULAR: Regular rate and rhythm without murmurs, gallops, or rubs. + right lower extremity pulse RESPIRATORY: Clear to auscultation. Breath sounds equal bilaterally. No wheezes , rales, or rhonchi. GASTROINTESTINAL: Abdomen soft, non-tender, nondistended. No guarding. MUSCULOSKELETAL: Extremities without clubbing, cyanosis, or edema. No calf tenderness. NEUROLOGICAL: Awake and alert. Motor and sensory grossly within normal limits. Normal speech. . Laboratory Laboratory Tests Test 12/05/16 14:20 12/05/16 22:41 White Blood Count 11.3 Red Blood Count 4.45 Hemoglobin 13.5 Hematocrit 41.8 Mean Corpuscular Volume 93.8 Mean Corpuscular Hemoglobin 30.4 Mean Corpuscular Hemoglobin Concent 32.4 Red Cell Distribution Width 13.5 Platelet Count 252 Mean Platelet Volume 8.1 Neutrophils (%) (Auto) 58.6 Lymphocytes (%) (Auto) 30.1 Monocytes (%) (Auto) 9.1 Eosinophils (%) (Auto) 1.6 Basophils (%) (Auto) 0.6 Neutrophils # (Auto) 6.6 Lymphocytes # (Auto) 3.4 Monocytes # (Auto) 1.0 Eosinophils # (Auto) 0.2 Basophils # (Auto) 0.1 CBC Comment DIFF FINAL Differential Comment Prothrombin Time 11.2 Prothromb Time International Ratio 1.0 Activated Partial Thromboplast Time 26.4 Blood Urea Nitrogen 28 Creatinine 1.30 Random Glucose 62 Calcium Level 9.5 Sodium Level 142 Potassium Level 4.3 Chloride Level 110 Carbon Dioxide Level 25.0 Anion Gap 7 Estimat Glomerular Filtration Rate 55 Result Diagram: 12/05/16 1420 12/05/16 1420 Imaging Last Impressions Aorta w/Runoff CTA 12/05/16 0000 Signed Impressions: Service Date/Time: November 15:25 - CONCLUSION: Right femoropopliteal bypass is occluded. The popliteal artery at and below the anastomosis is occluded. Flow reconstitutes in the below knee popliteal. 2 vessel right calf runoff. MD Antonella Booth VTE Risk Assessment Antonella VTE Risk Assessment: Mod/High Risk (score >= 2) VTE Pharm Contraindication: on tpa/heparin gtt Caprini Risk Assessment Model Point Value = 1 Point Value = 2 Point Value = 3 Point Value = 5 Age 41-60 Minor surgery BMI > 25 kg/m2 Swollen legs Varicose veins or History of unexplained or recurrent spontaneous Oral contraceptives or hormone replacement Sepsis (< 1 month) Serious lung disease, including pneumonia (< 1 month) Abnormal pulmonary function Acute myocardial infarction Congestive heart failure (< 1 month) History of inflammatory bowel disease Medical patient at bed rest Age 61-74 Arthroscopic surgery Major open surgery (> 45 min) Laparoscopic surgery (> 45 min) Malignancy Confined to bed (> 72 hours) Immobilizing plaster cast Central venous access Age >= 75 History of VTE Family history of VTE Factor V Leiden Prothrombin [id number] Lupus anticoagulant Anticardiolipin antibodies Elevated serum homocysteine Heparin-induced thrombocytopenia Other congenital or acquired thrombophilia Stroke (< 1 month) Elective arthroplasty Hip, pelvis, or leg fracture Acute spinal cord injury (< 1 month) Prophylaxis Regimen Total Risk Factor Score Risk Level Prophylaxis Regimen 0-1 Low Early ambulation 2 Moderate Order ONE of the following: *Sequential Compression Device (SCD) *Heparin 5000 units SQ BID 3-4 Higher Order ONE of the following medications: *Heparin 5000 units SQ TID *Enoxaparin/Lovenox 40 mg SQ daily (WT < 150 kg, CrCl > 30 mL/min) *Enoxaparin/Lovenox 30 mg SQ daily (WT < 150 kg, CrCl > 10-29 mL/min) *Enoxaparin/Lovenox 30 mg SQ BID (WT < 150 kg, CrCl > 30 mL/min) AND/OR *Sequential Compression Device (SCD) 5 or more Highest Order ONE of the following medications: *Heparin 5000 units SQ TID (Preferred with Epidurals) *Enoxaparin/Lovenox 40 mg SQ daily (WT < 150 kg, CrCl > 30 mL/min) *Enoxaparin/Lovenox 30 mg SQ daily (WT < 150 kg, CrCl > 10-29 mL/min) *Enoxaparin/Lovenox 30 mg SQ BID (WT < 150 kg, CrCl > 30 mL/min) AND *Sequential Compression Device (SCD) Assessment and Plan Problem List: (1) Thrombosis of arteries of lower extremity ICD Code: I74.3 - Embolism and thrombosis of arteries of the lower extremities (2) Peripheral vascular disease ICD Code: I73.9 - Peripheral vascular disease, unspecified Status: Acute (3) Hypertension ICD Code: I10 - Essential (primary) hypertension Status: Chronic (4) Type 2 diabetes mellitus ICD Code: E11.9 - Type 2 diabetes mellitus without complications Status: Chronic Assessment and Plan 66 y/o male s/p fem/pop bypass in July 2016 who presented to ED with progressively worsening right foot pain. Occluded femoral popliteal bypass - pain management: [place] PRN, Morphine IV PRN breakthrough pain - on TPA and heparin following failed attempt at thrombolysis by IR Hypertension - resume home medications - monitor bp and adjust treatment as needed Type 2 Diabetes Mellitus - Accu-Cheks before meals and at bedtime with low-dose NovoLog sliding scale coverage - Hypoglycemia protocol - Monitor trends and blood glucose readings and adjust treatments as indicated DVT prophylaxis - on TPA and heparin . This note was transcribed by zoila [Yesica Klein]. I, Dr. Cha Redding personally performed the history, physical exam, and medical decision making; and confirmed the accuracy of the information in the transcribed note. Authenticated by Dr. Cha Redding on 12/05/16 at 23:01. Discussed Condition With ER physician, RN, and patient . Physician Certification 2 Midnight Certification Type: Admission for Inpatient Services Order for Inpatient Services The services are ordered in accordance with Medicare regulations or non- Medicare payer requirements, as applicable. In the case of services not specified as inpatient-only, they are appropriately provided as inpatient services in accordance with the 2-midnight benchmark. Estimated LOS (days): 3 days is the estimated time the patient will need to remain in the hospital, assuming treatment plan goals are met and no additional complications. Post-Hospital Plan: Home Problem Qualifiers (1) Type 2 diabetes mellitus: Yesica Klein Dec 05, 2016 23:01 Cha Redding MD Dec 08, 2016 23:48
[2016-12-05 23:09] LABS: APTT (PATIENT) 25.1 SEC (24.3-30.1)
[2016-12-05] MEDS ORDERED: Intra-Arterial HEPARIN 1,000 UNITS/500 ML NS (PRN) I-ARTERIAL ×2 (23:45)
[2016-12-05] MEDS ORDERED: HEPARIN-D5W 25,000 U/250 ML 250 ML IV SCH (23:45)
[2016-12-05] MEDS ORDERED: Intra-Arterial HEPARIN 1,000 UNITS/500 ML NS (KVO) I-ARTERIAL SCH ×2 (23:45)
[2016-12-05] MEDS ORDERED: ONDANSETRON HCL 4 MG/2 ML VIAL IV PRN (23:45)
[2016-12-06] VITALS (15 sets, daily range): BP systolic 115–166; BP diastolic 63–88; PULSE 67–110; RESP 12–22; TEMP 97.7–99.3; O2SAT 94–98
[2016-12-06] MEDS: Intra-Arterial ALTEPLASE 10 MG/500 ML NS I-ARTERIAL PRN ×4 (00:33→05:10)
[2016-12-06] MEDS ORDERED: DEXTROSE 50% IN WATER 50 ML VIAL(D50) IV PRN (01:00)
[2016-12-06] MEDS ORDERED: GLUCAGON 1 MG/ML VIAL OTHER PRN (01:00)
[2016-12-06 05:02] LABS: AUTOMATED NEUTROPHIL # 9.1 TH/MM3 (1.8-7.7); BASOPHIL % 0.3 % (0.0-2.0); EOSINOPHIL % 0.2 % (0.0-4.0); HEMATOCRIT 37.1 % (39.0-51.0); HEMO FLAGS DIFF FINAL; LYMPH % 15.2 % (9.0-44.0); LYMPHOCYTE # 1.8 TH/MM3 (1.0-4.8); MEAN CELL VOLUME 93.9 FL (80.0-100.0); MEAN CORPUSCULAR HEMOGLOBIN 29.9 PG (27.0-34.0); MEAN CORPUSCULAR HGB CONC 31.8 % (32.0-36.0); MONO % 6.1 % (0.0-8.0); NEUT % 78.2 % (16.0-70.0); PLATELET COUNT 180 TH/MM3 (150-450); RED BLOOD COUNT 3.96 MIL/MM3 (4.50-5.90); RED CELL DISTRIBUTION WIDTH 13.6 % (11.6-17.2); WHITE BLOOD COUNT 11.7 TH/MM3 (4.0-11.0)
[2016-12-06 06:30] LABS: APTT (PATIENT) 32.4 SEC (24.3-30.1)
[2016-12-06] MEDS: INSULIN ASPART SUPPLEMENTAL SCALE SQ SCH ×4 (07:00→23:00)
[2016-12-06] MEDS: DOCUSATE SODIUM 50 MG/SENNA 8.6 MG TAB PO SCH ×2 (08:12→21:25)
[2016-12-06] MEDS: NIFEdipine 60 MG SUSTAINED RELEASE TAB PO SCH (08:13)
[2016-12-06] MEDS: LISINOPRIL 20 MG TAB PO SCH (08:13)
[2016-12-06] MEDS: SODIUM CHLORIDE 0.9% FLUSH 10 ML FLUSH IV FLUSH SCH ×2 (09:00→21:26)
[2016-12-06] MEDS ORDERED: MIDAZOLAM HCL 5 MG/5 ML VIAL ONE (09:25)
[2016-12-06] MEDS ORDERED: HEPARIN SODIUM - IV 10,000 UNITS/10 ML VIAL ONE (09:55)
[2016-12-06] MEDS ORDERED: ceFAZolin 2 GM PREMIX 50 ML ONE (10:12)
[2016-12-06] MEDS ORDERED: IODIXANOL 320 MG/ML 50 ML VIAL (for RAD SPEC) I-ARTERIAL ONE (10:47)
[2016-12-06] MEDS ORDERED: SODIUM CHLORIDE 0.9% FLUSH 10 ML FLUSH IVF PRN (11:15)
--- NOTE | 2016-12-06 11:18 | PD.RAD ---
Post Procedure Progress Note Pre Procedure Diagnosis: (1) Peripheral vascular disease (2) Thrombosis of arteries of lower extremity Post Procedure Diagnosis: (1) Peripheral vascular disease (2) Thrombosis of arteries of lower extremity Procedure Date: Dec 06, 2016 Supervising Radiologist: Maciel Manuel Proceduralist/Assist: RT Carolina(R) Anesthesia: Local, Conscious Sedation Plan of Activity Patient to Unit: Critical Care Patient Condition: Good See PACS Report for procedural detail/treatment Vascular-Arterial Procedure Procedure 1 Procedure Site: Right Leg Procedure(s): Angiogram, Thrombolysis Access Access Site(s): Left Femoral Artery Closure Site(s): Left vascular closure device Findings: thrombolysis completed stenosis at distal fem-pop graft anastamosis treated with [employer] AIDE runoff stable and adequate Plan heparin anticoagulation 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
--- NOTE | 2016-12-06 11:33 | HHI.PR ---
Subjective Remarks Follow up visit on patient with occluded fem/pop bypass. Patient seen and examined. Patient reports progressive right foot pain for the past 2 weeks with new discoloration on bottom of right foot prompting him to come into the ED. Patient just returned from specials per nursing staff. Off TPA. Patient reports mild cramping in the right calf. Denies any pain in foot. Denies any other complaints. No chest pain or shortness of breath. No N/V or abdominal pain. Objective Vitals Vital Signs Date Time Temp Pulse Resp B/P (MAP) Pulse Ox O2 Delivery O2 Flow Rate FiO2 12/06/16 08:24 12 12/06/16 08:05 98 Nasal Cannula 2.00 12/06/16 08:00 67 12/06/16 08:00 98.1 70 22 136/84 (101) 95 12/06/16 07:00 95 Nasal Cannula 2.00 12/06/16 06:00 76 12/06/16 04:30 74 12/06/16 04:00 97.8 73 12 126/80 (95) 98 12/06/16 04:00 89 12/06/16 02:00 89 12/06/16 00:00 84 12/06/16 00:00 97.7 88 16 166/88 (114) 96 12/05/16 21:30 84 12 156/78 (104) 93 Room Air 12/05/16 21:15 83 14 159/77 (104) 94 Room Air 12/05/16 21:00 83 14 172/82 (112) 96 Room Air 12/05/16 20:45 84 12 161/78 (105) 93 Room Air 12/05/16 20:30 83 14 165/74 (104) 96 Room Air 12/05/16 20:15 98.2 88 14 166/78 (107) 96 Room Air 12/05/16 17:52 74 17 142/70 (94) 12/05/16 15:32 95 21 12/05/16 15:21 12/05/16 15:16 84 17 164/72 (102) 12/05/16 13:03 98.5 93 17 140/86 (104) 98 Room Air I/O 12/05/16 12/05/16 12/05/16 12/06/16 12/06/16 12/06/16 07:00 15:00 23:00 07:00 15:00 23:00 Intake Total 2135 ml Output Total 800 ml Balance 1335 ml Intake Oral 350 ml IV Total 1785 ml Output Urine Total 800 ml # Voids 2 Result Diagram: 12/06/16 0430 12/05/16 1420 Imaging Last Impressions Aorta w/Runoff CTA 12/05/16 0000 Signed Impressions: Service Date/Time: November 15:25 - CONCLUSION: Right femoropopliteal bypass is occluded. The popliteal artery at and below the anastomosis is occluded. Flow reconstitutes in the below knee popliteal. 2 vessel right calf runoff. Maciel Manuel MD Objective Remarks GENERAL: This is a well-nourished, well-developed patient, INAD. Lying in hospital bed. Appears comfortable. SKIN: No rashes, ecchymoses or lesions. Cool and dry. HEAD: Atraumatic. Normocephalic. EYES: EOMI. No scleral icterus. No injection or drainage. ENT: Nose without bleeding, purulent drainage. Airway patent. NECK: Trachea midline. Supple. CARDIOVASCULAR: Regular rate and rhythm, 3/6 systolic murmur R USB. Faint right DP pulse noted with doppler. RESPIRATORY: Clear to auscultation. Breath sounds equal bilaterally. No wheezes , rales, or rhonchi. GASTROINTESTINAL: Abdomen soft, non-tender, nondistended. No guarding. MUSCULOSKELETAL: Extremities without clubbing, cyanosis. Right calf firm and tender to palpation. NEUROLOGICAL: Awake and alert. Motor and sensory grossly within normal limits. Normal speech. Procedures 12/06 Right leg Angiogram, thrombolysis Medications and IVs Current Medications Medications (Trade) Dose Ordered Sig/Danny Route Start Time Stop Time Status Last Admin (NS Flush) 2 ml UNSCH PRN IV FLUSH 12/05/16 15:30 (NS Flush) 2 ml BID IV FLUSH 12/05/16 21:00 12/05/16 21:00 (Tylenol) 650 mg Q4H PRN PO 12/05/16 15:30 (Narcan Inj) 0.4 mg UNSCH PRN IV 12/05/16 15:30 (Magali-Colace) 1 tab BID PO 12/05/16 21:00 12/06/16 08:12 (Milk Of Magnesia Liq) 30 ml Q12H PRN PO 12/05/16 15:30 (Senokot) 17.2 mg Q12H PRN PO 12/05/16 15:30 (Dulcolax Supp) 10 mg DAILY PRN RECTAL 12/05/16 15:30 Miscellaneous Information ALL NURSING DEPARTME... UNSCH PRN .XX 12/05/16 20:10 12/06/16 20:09 Heparin Sodium/ Dextrose 250 ml @ 5 mls/hr Q24H IV 12/05/16 23:45 (Morphine Inj) 2 mg Q10M PRN IV 12/05/16 23:45 (Morphine Inj) 4 mg Q10M PRN IV 12/05/16 23:45 12/06/16 08:13 (Zofran Inj) 4 mg Q6H PRN IV 12/05/16 23:45 (D50w (Vial) Inj) 50 ml UNSCH PRN IV 12/06/16 01:00 (Glucagon Inj) 1 mg UNSCH PRN OTHER 12/06/16 01:00 (NovoLOG SUPPLEMENTAL SCALE) 1 ACHS SLIDING SCALE SQ 12/06/16 07:00 (Lipitor) 20 mg HS PO 12/06/16 21:00 (Procardia Xl) 60 mg DAILY PO 12/06/16 09:00 12/06/16 08:13 (Prinivil) 40 mg DAILY PO 12/06/16 09:00 12/06/16 08:13 Sodium Chloride 1,000 ml @ 100 mls/hr Q10H IV 12/06/16 11:12 12/06/16 21:11 UNV Heparin Sodium/ Dextrose 250 ml @ 17.19 mls/ hr TITRATE PRN IV 12/06/16 11:15 UNV A/P Problem List: (1) Thrombosis of arteries of lower extremity ICD Code: I74.3 - Embolism and thrombosis of arteries of the lower extremities (2) Peripheral vascular disease ICD Code: I73.9 - Peripheral vascular disease, unspecified Status: Acute (3) Hypertension ICD Code: I10 - Essential (primary) hypertension Status: Chronic (4) Type 2 diabetes mellitus ICD Code: E11.9 - Type 2 diabetes mellitus without complications Status: Chronic Assessment and Plan 66 y/o male s/p fem/pop bypass in July 2015 who presented to ED with progressively worsening right foot pain. Occluded femoral popliteal bypass Ischemic right foot pain, improved - pain management: [place] PRN, Morphine IV PRN breakthrough pain - Dr. Alfonso following, appreciate recommendations. Discussed with Dr. Alfonso patients complaints of right leg cramping, calf tenderness/firmness - per Dr. Hayes to be expected following revascularization, no doppler needed - s/p right leg angiogram, thrombolysis by IR - stenosis at distal fem-pop graft anastamosis treated with [employer], runoff stable and adequate. TPA discontinued. Hypertension HLD - controlled - continue home medications Procardia XL 60mg daily and Lisinopril 40mg daily - continue patient on home Atorvastatin 20mg daily - monitor bp and adjust treatment as needed Type 2 Diabetes Mellitus - Accu-Cheks before meals and at bedtime with low-dose NovoLog sliding scale coverage - Hypoglycemia protocol - Monitor trends and blood glucose readings and adjust treatments as indicated - home Metformin and Glimepiride on hold DVT prophylaxis - on heparin Discussed with nursing staff, patient and Dr. Mars Attending Statement The exam, history, and the medical decision-making described in the above note were completed with the assistance of the mid-level provider. I reviewed and agree with the findings presented. I attest that I had a [id number] encounter with the patient on the same day, and personally performed and documented my assessment and findings in the medical record. Patient stable post revascularization, no chest pain or short of breath, leg cramping, CVS following, agree with above Problem Qualifiers (1) Type 2 diabetes mellitus: Kala López Dec 06, 2016 11:33 Al Mars MD Dec 06, 2016 19:35
[2016-12-06 11:44] LABS: HEMATOCRIT 37.1 % (39.0-51.0); MEAN CELL VOLUME 94.1 FL (80.0-100.0); MEAN CORPUSCULAR HEMOGLOBIN 30.9 PG (27.0-34.0); MEAN CORPUSCULAR HGB CONC 32.9 % (32.0-36.0); PLATELET COUNT 180 TH/MM3 (150-450); RED BLOOD COUNT 3.95 MIL/MM3 (4.50-5.90); RED CELL DISTRIBUTION WIDTH 13.2 % (11.6-17.2); REVIEW FLAG FINAL; WHITE BLOOD COUNT 10.6 TH/MM3 (4.0-11.0)
[2016-12-06 12:04] LABS: INTERNATIONAL NORMALIZED RATIO 1.3 RATIO; PROTHROMBIN TIME - PATIENT 14.5 SEC (9.8-11.6)
[2016-12-06 12:32] LABS: APTT (PATIENT) 101.8 SEC (24.3-30.1)
[2016-12-06] MEDS ORDERED: HEPARIN-D5W 25,000 U/250 ML 250 ML IV PRN (13:00)
[2016-12-06] MEDS ORDERED: SODIUM CHLOR 0.9% 1000 ML INJ 1,000 ML IV SCH (13:00)
--- NOTE | 2016-12-06 13:49 | PD.CAR.PN ---
CVT Progress Note Subjective/Hospital Course: Patient seen and evaluated Full consult dictated Ischemia of the right leg probably due to femoropopliteal bypass occlusion CTA with runoff pending Will tailor therapy based on the finding of the CTA Shawn Hayes 12/06/16 Patient doing very well this morning He has palpable femoral pulse strong dopplerable popliteal dorsalis pedis and posterior tibial pulses Foot is warm Patient clearly has clinical reestablishment of the previously occluded femoropopliteal graft and once confirmed by angiogram, will discontinue TPA and continue patient on IV heparin and then switched on by mouth anticoagulant probably factor X a inhibitor In addition completion angiogram and may reveal if patient has any stenotic areas in the distal popliteal or anastomotic area which can be been remedied with the balloon as well. Once the TPA discontinued patient will be transferred to the [facility] 35 minutes Objective: Vital Signs Date Time Temp Pulse Resp B/P (MAP) Pulse Ox O2 Delivery O2 Flow Rate FiO2 12/06/16 11:00 75 12/06/16 08:24 12 12/06/16 08:05 98 Nasal Cannula 2.00 12/06/16 08:00 67 12/06/16 08:00 98.1 70 22 136/84 (101) 95 12/06/16 07:00 95 Nasal Cannula 2.00 12/06/16 06:00 76 12/06/16 04:30 74 12/06/16 04:00 97.8 73 12 126/80 (95) 98 12/06/16 04:00 89 12/06/16 02:00 89 12/06/16 00:00 84 12/06/16 00:00 97.7 88 16 166/88 (114) 96 12/05/16 21:30 84 12 156/78 (104) 93 Room Air 12/05/16 21:15 83 14 159/77 (104) 94 Room Air 12/05/16 21:00 83 14 172/82 (112) 96 Room Air 12/05/16 20:45 84 12 161/78 (105) 93 Room Air 12/05/16 20:30 83 14 165/74 (104) 96 Room Air 12/05/16 20:15 98.2 88 14 166/78 (107) 96 Room Air 12/05/16 17:52 74 17 142/70 (94) 12/05/16 15:32 95 21 12/05/16 15:21 12/05/16 15:16 84 17 164/72 (102) Labs: Laboratory Tests Test 12/06/16 04:30 12/06/16 05:52 12/06/16 11:20 White Blood Count 11.7 TH/MM3 (4.0-11.0) 10.6 TH/MM3 (4.0-11.0) Red Blood Count 3.96 MIL/MM3 (4.50-5.90) 3.95 MIL/MM3 (4.50-5.90) Hemoglobin 11.8 GM/DL (13.0-17.0) 12.2 GM/DL (13.0-17.0) Hematocrit 37.1 % (39.0-51.0) 37.1 % (39.0-51.0) Mean Corpuscular Volume 93.9 FL (80.0-100.0) 94.1 FL (80.0-100.0) Mean Corpuscular Hemoglobin 29.9 PG (27.0-34.0) 30.9 PG (27.0-34.0) Mean Corpuscular Hemoglobin Concent 31.8 % (32.0-36.0) 32.9 % (32.0-36.0) Red Cell Distribution Width 13.6 % (11.6-17.2) 13.2 % (11.6-17.2) Platelet Count 180 TH/MM3 (150-450) 180 TH/MM3 (150-450) Mean Platelet Volume 7.6 FL (7.0-11.0) 7.8 FL (7.0-11.0) Neutrophils (%) (Auto) 78.2 % (16.0-70.0) Lymphocytes (%) (Auto) 15.2 % (9.0-44.0) Monocytes (%) (Auto) 6.1 % (0.0-8.0) Eosinophils (%) (Auto) 0.2 % (0.0-4.0) Basophils (%) (Auto) 0.3 % (0.0-2.0) Neutrophils # (Auto) 9.1 TH/MM3 (1.8-7.7) Lymphocytes # (Auto) 1.8 TH/MM3 (1.0-4.8) Monocytes # (Auto) 0.7 TH/MM3 (0-0.9) Eosinophils # (Auto) 0.0 TH/MM3 (0-0.4) Basophils # (Auto) 0.0 TH/MM3 (0-0.2) CBC Comment DIFF FINAL Differential Comment Activated Partial Thromboplast Time 32.4 SEC (24.3-30.1) 101.8 SEC (24.3-30.1) Fibrinogen 28 mg/dL (227-377) Prothrombin Time 14.5 SEC (9.8-11.6) Prothromb Time International Ratio 1.3 RATIO Result Diagram: 12/06/16 1120 12/05/16 1420 Beatriz Alfonso MD Dec 06, 2016 13:49
--- NOTE | 2016-12-06 13:57 | RADRPT ---
EXAM DATE/TIME: 12/05/2016 17:41 COMPARISON: No previous studies available for comparison. INDICATIONS : Patient with a history of right leg thrombus. MEDICAL HISTORY : HTN Diabetes mellitus type II PVD SURGICAL HISTORY : Right leg fempop graft ENCOUNTER: Initial ACUITY: 1 week PAIN SCORE: 8/10 LOCATION: Right leg FLUORO TIME: 11.7 minutes IMAGE SERIES: 9 ACCESS SITE: Left Femoral artery SEDATION TIME: 40 minutes CONTRAST: 1.) 60 cc Visipaque (iodixanol) MEDICATION(S): 1.) 3 mg midazolam (Versed) IV 2.) 150 mcg fentanyl (Sublimaze) IV DEVICE(S): 1.) Right femoral popliteal graft artery [id number] Infusion catheter PROCEDURE: 1. Ultrasound guided left common femoral artery access 2. Right lower extremity arteriography 3. Selective catheterization, right popliteal artery from left femoral approach 4. Additional selective arteriography, right lower extremity. 5. Infusion for thrombolysis 6. Continuous pulse oximetry, hemodynamic and EKG monitoring. 7. Intravenous conscious sedation. TECHNIQUE: The patient was placed supine on the angiography table. The left groin was prepped in sterile fashion . Full sterile technique was used, including cap, mask, sterile gloves and gown and a large sterile s heet. Hand hygiene and 2% chlorhexidine and/or betadine/alcohol prep was utilized per protocol for cu taneous antisepsis with appropriate dry time for site. The skin and subcutaneous tissues were infiltr ated with lidocaine solution. Blunt dissection was utilized to free up the tissues superficial to the access vessel. Ultrasound guidance was utilized using sterile gel and sterile probe cover. Under dir ect ultrasound guidance, micropuncture access was accomplished into the left common femoral artery al lowing placement of a 4 Panamanian vascular sheath. The ultrasound images depicting access guidance were saved and stored to PACS for permanent record. A 4 [place]amanian Omni flush catheter was inserted and was positioned in the low abdominal aorta. Digital montalvo btraction pelvic arteriography was performed. The Omni Flush catheter was used to select over the aor tic bifurcation and was manipulated down into the contralateral right common femoral artery. Selectiv e arteriography was performed of the right leg. An exchange length stiff angled Glidewire was introdu lyn and was manipulated through an occluded right femoropopliteal bypass graft into the [place] right popliteal artery. A 4 [place]ian Glidex catheter followed without difficulty into the below knee poplitea l artery. Additional selective arteriography was performed with imaging over the right calf and ankle . A 6 [place]ian 45 cm Ansell I sheath was then inserted and manipulated into the right common femoral gregorio ry. A 50 cm infusion length 5 [place]ian thrombolytic catheter was then inserted and positioned with prox imal sideholes just above the bypass graft origin with distal sideholes extending down into the above -knee popliteal. The catheter and sheath were secured at the left groin. TPA infusion was started and low dose systemic heparin therapy was started. The patient tolerated the procedure well and was taken to the intensive unit in satisfactory stable c ondition. FINDINGS: Moderate aneurysmal dilatation of the distal abdominal aorta is noted. There is no significant iliac inflow stenosis on either side. The hypogastrics are patent bilaterally. The deep femoral arteries ar e patent bilaterally. On the right, the [place] superficial femoral artery is totally occluded. A synt hetic femoral to above knee popliteal bypass graft is totally occluded. Flow reconstitutes in the pop liteal artery at the level of the knee joint and then continues down the calf through peritoneal and posterior tibial vessels. At the ankle level, the peritoneal collateralizes to the distal anterior ti bial which continues into the dorsum of the foot. The posterior tibial flows into ankle collaterals w ith ultimate reconstitution of the plantar vessels. CONCLUSION: Arteriography confirms occlusion of the patient's right femoropopliteal bypass graft with reconstitut ion of the popliteal. Adequate calf runoff. An infusion catheter was placed and TPA has been started. We will followup the arteriographic appearance in the morning. Maciel Manuel MD on December 06, 2016 at 12:08 Board Certified Radiologist. This report was verified electronically.
--- NOTE | 2016-12-06 14:49 | RADRPT ---
EXAM DATE/TIME: 12/06/2016 09:18 [place] COMPARISON: No previous studies available for comparison. INDICATIONS : Patient with history of right leg thrombus in need of follow up post TPA infusion. MEDICAL HISTORY : 1.PVD 2.HTN 3.Diabetes SURGICAL HISTORY : 1.Fem/Pop bypass July 2016 ENCOUNTER: Subsequent ACUITY: 2 days PAIN SCORE: 0/10 FLUORO TIME: 5.5 minutes IMAGE SERIES: 7 ACCESS SITE: SEDATION TIME: 30 minutes CONTRAST: 1.) 35 cc Visipaque (iodixanol) MEDICATION(S): 1.) 2 mg midazolam (Versed) IV 2.) 100 mcg fentanyl (Sublimaze) IV Vancomycin within 2 hrs of procedure, Ancef (or alternative) within 1 hr of procedure. 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 Followup thrombolysis 2. Conscious sedation with continuous EKG, hemodynamic and oximetry monitoring. 3. Angioplasty, right popliteal artery 4. Left femoral arteriography prior to arteriotomy closure 5. Left femoral arteriotomy closure with Angio-Seal device Following TPA infusion the patient returned to the angiography suite for reevaluation. The patient wa s placed supine on the angiography table. The left groin with existing sheath and infusion catheter w as prepped in sterile fashion. Full sterile technique was used, including cap, mask, sterile gloves a nd gown and a large sterile sheet. Hand hygiene and 2% chlorhexidine and/or betadine/alcohol prep was utilized per protocol for cutaneous antisepsis with appropriate dry time for site. The skin and subc utaneous tissues were infiltrated with lidocaine solution. Under direct fluoroscopic guidance, an exchange length stiff angled Glidewire was introduced through the existing infusion catheter and positioned down into the right popliteal artery. The infusion cath eter was removed intact. Followup right leg arteriography was then performed with injection of the gr oin sheath. The images demonstrate complete or near-complete clearance of thrombus from the right femoropopliteal graft and tribe popliteal artery. Detailed imaging at the distal anastomosis region revealed mild e ccentric stenosis in the distal graft which could potentially have been a small focus of remaining th rombus. There was also mild irregularity in stenotic narrowing in the tribe popliteal artery just be low the anastomosis, also either atheroma or remaining clot. A 4 Latvian Glidex angled taper catheter was introduced and positioned into the popliteal artery. Thro ugh this, a 5 mm SpiderFX distal protection filter was introduced and deployed into the below knee po pliteal. A 6 mm x 4 cm angioplasty balloon was then introduced and used to dilate the distal graft an astomosis utilizing a single flow prolonged balloon inflation. Followup imaging revealed an excellent angiographic appearance with no residual stenotic narrowing. Calf runoff was stable and adequate with patent peritoneal and posterior tibial vessels. The peritone al collateralizes at the ankle joint level to the distal anterior tibial with continuity of flow into the dorsalis pedis. Collaterals fill the plantar vessels. The sheath was retracted into the ipsilateral left external iliac artery and she's arteriography was performed to assess the common femoral artery for closure. The sheath was removed and the arteriotomy was closed with the Angio-Seal device. The patient tolerated the procedure well and there were no complications. Conscious sedation was perf ormed with the prescribed dosages and duration as above in the presence of an independent trained rad iology nurse to assist in the monitoring of the patient. EKG and oximetry remained stable throughout the procedure. CONCLUSION: Successful uncomplicated thrombolytic treatment of right femoropopliteal graft thrombosis. A narrowin g at the distal anastomosis was treated with balloon angioplasty as described. I will start the patient on IV heparin pending a decision regarding possible oral anticoagulation. Maciel Manuel MD on December 06, 2016 at 14:35 Board Certified Radiologist. This report was verified electronically.
[2016-12-06 16:23] LABS: APTT (PATIENT) 31.9 SEC (24.3-30.1)
[2016-12-06] MEDS: ATORVASTATIN 20 MG TAB PO SCH (21:26)
[2016-12-07] VITALS (14 sets, daily range): BP systolic 148–166; BP diastolic 67–74; PULSE 84–108; RESP 18–24; TEMP 97.9–100.1; O2SAT 94–98
[2016-12-07 01:14] LABS: APTT (PATIENT) 41.5 SEC (24.3-30.1)
[2016-12-07] MEDS: MORPHINE SULFATE 4 MG/ML INJ IV PRN ×2 (06:27→12:18)
[2016-12-07] MEDS: INSULIN ASPART SUPPLEMENTAL SCALE SQ SCH ×4 (07:00→21:00)
[2016-12-07] MEDS: LISINOPRIL 20 MG TAB PO SCH (08:24)
[2016-12-07 08:28] LABS: APTT (PATIENT) 48.8 SEC (24.3-30.1)
[2016-12-07] MEDS: NIFEdipine 60 MG SUSTAINED RELEASE TAB PO SCH (08:37)
[2016-12-07] MEDS: SODIUM CHLORIDE 0.9% FLUSH 10 ML FLUSH IV FLUSH SCH ×2 (09:00→20:50)
[2016-12-07] MEDS: DOCUSATE SODIUM 100 MG CAP PO SCH ×2 (10:15→20:51)
[2016-12-07] MEDS: DOCUSATE SODIUM 50 MG/SENNA 8.6 MG TAB PO SCH ×2 (11:13→20:51)
--- NOTE | 2016-12-07 13:30 | PD.CAR.PN ---
CVT Progress Note Subjective/Hospital Course: Patient seen and evaluated Full consult dictated Ischemia of the right leg probably due to femoropopliteal bypass occlusion CTA with runoff pending Will tailor therapy based on the finding of the CTA Shawn Hayes 12/06/16 Patient doing very well this morning He has palpable femoral pulse strong dopplerable popliteal dorsalis pedis and posterior tibial pulses Foot is warm Patient clearly has clinical reestablishment of the previously occluded femoropopliteal graft and once confirmed by angiogram, will discontinue TPA and continue patient on IV heparin and then switched on by mouth anticoagulant probably factor X a inhibitor In addition completion angiogram and may reveal if patient has any stenotic areas in the distal popliteal or anastomotic area which can be been remedied with the balloon as well. Once the TPA discontinued patient will be transferred to the floor Critical care 35 minutes 12/07/16 Patient is doing great at this time he has a palpable femoral pulse and strong dopplerable popliteal dissolves pedis and posterior tibial pulses Foot is warm Patient underwent successful tPA lysis of the femoropopliteal graft and balloon angioplasty of the distal graft anastomosis and the popliteal artery Patient remains on IV heparin and at this point we can discontinue heparin in place patient on Plavix Out of bed Transferred to floor All things equal patient will be discharged when storm passes Objective: Vital Signs Date Time Temp Pulse Resp B/P (MAP) Pulse Ox O2 Delivery O2 Flow Rate FiO2 12/07/16 12:42 20 12/07/16 12:00 100.1 106 18 166/74 (104) 97 12/07/16 12:00 106 12/07/16 10:00 100 12/07/16 09:03 95 21 12/07/16 08:00 99.3 104 20 155/74 (101) 97 12/07/16 08:00 108 12/07/16 07:00 94 Room Air 12/07/16 06:00 91 12/07/16 04:00 90 12/07/16 04:00 98.8 90 18 155/67 (96) 97 12/07/16 02:00 92 12/07/16 00:00 84 12/07/16 00:00 97.9 84 21 155/67 (96) 94 12/06/16 22:00 91 12/06/16 20:40 96 12/06/16 20:00 91 12/06/16 20:00 99.1 82 18 115/63 (80) 94 12/06/16 19:00 94 Room Air 12/06/16 18:00 110 12/06/16 16:00 99.3 98 18 163/76 (105) 97 12/06/16 16:00 91 12/06/16 14:00 77 Labs: Laboratory Tests Test 12/07/16 08:08 Activated Partial Thromboplast Time 48.8 SEC (24.3-30.1) Result Diagram: 12/06/16 1120 12/05/16 1420 Beatriz Alfonso MD Dec 07, 2016 13:30
[2016-12-07] MEDS ORDERED: MORPHINE SULFATE 4 MG/ML INJ IV PUSH PRN (13:45)
[2016-12-07] MEDS: CLOPIDOGREL 75 MG TAB PO SCH (14:00)
[2016-12-07] MEDS: oxyCODONE/ACETAMINOPHEN 5 MG/325 MG TAB PO PRN (14:28)
--- NOTE | 2016-12-07 18:03 | HHI.PR ---
Subjective Remarks Patient resting well in bed no acute issue no chest pain or short of breath Objective Vitals Vital Signs Date Time Temp Pulse Resp B/P (MAP) Pulse Ox O2 Delivery O2 Flow Rate FiO2 12/07/16 16:00 99.1 94 22 158/73 (101) 95 12/07/16 16:00 93 12/07/16 15:30 21 12/07/16 14:00 99 12/07/16 12:42 20 12/07/16 12:00 100.1 106 18 166/74 (104) 97 12/07/16 12:00 106 12/07/16 10:00 100 12/07/16 09:03 95 21 12/07/16 08:00 99.3 104 20 155/74 (101) 97 12/07/16 08:00 108 12/07/16 07:00 94 Room Air 12/07/16 06:00 91 12/07/16 04:00 90 12/07/16 04:00 98.8 90 18 155/67 (96) 97 12/07/16 02:00 92 12/07/16 00:00 84 12/07/16 00:00 97.9 84 21 155/67 (96) 94 12/06/16 22:00 91 12/06/16 20:40 96 12/06/16 20:00 91 12/06/16 20:00 99.1 82 18 115/63 (80) 94 12/06/16 19:00 94 Room Air 12/06/16 18:00 110 I/O 12/06/16 12/06/16 12/06/16 12/07/16 12/07/16 12/07/16 06:59 14:59 22:59 06:59 14:59 22:59 Intake Total 2135 ml 1120 ml 125 ml Output Total 800 ml 650 ml 925 ml Balance 1335 ml -650 ml 195 ml 125 ml Intake Oral 350 ml 120 ml IV Total 1785 ml 1000 ml 125 ml Output Urine Total 800 ml 650 ml 925 ml # Bowel Movements 0 0 Result Diagram: 12/06/16 1120 12/05/16 1420 Objective Remarks GENERAL: This is a well-nourished, well-developed patient, INAD. Lying in hospital bed. Appears comfortable. SKIN: No rashes, ecchymoses or lesions. Cool and dry. HEAD: Atraumatic. Normocephalic. EYES: EOMI. No scleral icterus. No injection or drainage. ENT: Nose without bleeding, purulent drainage. Airway patent. NECK: Trachea midline. Supple. CARDIOVASCULAR: Regular rate and rhythm 3/6 systolic murmur RUSB. RESPIRATORY: Clear to auscultation. Breath sounds equal bilaterally. No wheezes , rales, or rhonchi. GASTROINTESTINAL: Abdomen soft, non-tender, nondistended. No guarding. MUSCULOSKELETAL: Extremities without clubbing, cyanosis. Right calf firm and tender to palpation. NEUROLOGICAL: Awake and alert. Motor and sensory grossly within normal limits. Normal speech. Procedures 12/06 Right leg Angiogram, thrombolysis A/P Problem List: (1) Thrombosis of arteries of lower extremity ICD Code: I74.3 - Embolism and thrombosis of arteries of the lower extremities (2) Peripheral vascular disease ICD Code: I73.9 - Peripheral vascular disease, unspecified Status: Acute (3) Hypertension ICD Code: I10 - Essential (primary) hypertension Status: Chronic (4) Type 2 diabetes mellitus ICD Code: E11.9 - Type 2 diabetes mellitus without complications Status: Chronic Assessment and Plan 66 y/o male s/p fem/pop bypass in July 2015 who presented to ED with progressively worsening right foot pain. Occluded femoral popliteal bypass Ischemic right foot pain, improved - pain management: [place] PRN, Morphine IV PRN breakthrough pain - Dr. Alfonso following, appreciate recommendations. Discussed with Dr. Alfonso patients complaints of right leg cramping, calf tenderness/firmness - per Dr. Hayes to be expected following revascularization, no doppler needed - s/p right leg angiogram , thrombolysis by IR - stenosis at distal fem-pop graft anastamosis treated with [employer] SH[employer] ASSISTANT, runoff stable and adequate. TPA discontinued. Heparin drip discontinued 12/07, Plavix started, appreciate Dr. Hayes help, monitor for now patient mostly will need to be monitored over the weekend Hypertension HLD - controlled - continue home medications Procardia XL 60mg daily and Lisinopril 40mg daily - continue patient on home Atorvastatin 20mg daily - monitor bp and adjust treatment as needed Type 2 Diabetes Mellitus - Accu-Cheks before meals and at bedtime with low-dose NovoLog sliding scale coverage - Hypoglycemia protocol - Monitor trends and blood glucose readings and adjust treatments as indicated - home Metformin and Glimepiride on hold DVT prophylaxis - on heparin Problem Qualifiers (1) Type 2 diabetes mellitus: Al Mars MD Dec 07, 2016 18:03
[2016-12-07] MEDS: ATORVASTATIN 20 MG TAB PO SCH (20:50)
[2016-12-08] VITALS (12 sets, daily range): BP systolic 124–157; BP diastolic 57–80; PULSE 94–118; RESP 17–28; TEMP 98.4–101.8; O2SAT 93–97
[2016-12-08] MEDS: INSULIN ASPART SUPPLEMENTAL SCALE SQ SCH ×4 (06:09→20:46)
[2016-12-08] MEDS: NIFEdipine 60 MG SUSTAINED RELEASE TAB PO SCH (08:42)
[2016-12-08] MEDS: DOCUSATE SODIUM 100 MG CAP PO SCH ×2 (08:43→19:57)
[2016-12-08] MEDS: DOCUSATE SODIUM 50 MG/SENNA 8.6 MG TAB PO SCH ×2 (08:43→19:57)
[2016-12-08] MEDS: LISINOPRIL 20 MG TAB PO SCH (08:44)
[2016-12-08] MEDS: CLOPIDOGREL 75 MG TAB PO SCH (08:44)
[2016-12-08] MEDS: SODIUM CHLORIDE 0.9% FLUSH 10 ML FLUSH IV FLUSH SCH ×2 (09:23→19:58)
--- NOTE | 2016-12-08 12:15 | PD.CAR.PN ---
CVT Progress Note Subjective/Hospital Course: Patient seen and evaluated Full consult dictated Ischemia of the right leg probably due to femoropopliteal bypass occlusion CTA with runoff pending Will tailor therapy based on the finding of the CTA Shawn Hayes 12/06/16 Patient doing very well this morning He has palpable femoral pulse strong dopplerable popliteal dorsalis pedis and posterior tibial pulses Foot is warm Patient clearly has clinical reestablishment of the previously occluded femoropopliteal graft and once confirmed by angiogram, will discontinue TPA and continue patient on IV heparin and then switched on by mouth anticoagulant probably factor X a inhibitor In addition completion angiogram and may reveal if patient has any stenotic areas in the distal popliteal or anastomotic area which can be been remedied with the balloon as well. Once the TPA discontinued patient will be transferred to the floor Critical care 35 minutes 12/07/16 Patient is doing great at this time he has a palpable femoral pulse and strong dopplerable popliteal dissolves pedis and posterior tibial pulses Foot is warm Patient underwent successful tPA lysis of the femoropopliteal graft and balloon angioplasty of the distal graft anastomosis and the popliteal artery Patient remains on IV heparin and at this point we can discontinue heparin in place patient on Plavix Out of bed Transferred to floor All things equal patient will be discharged when storm passes 12/08/16 Patient doing well Awake alert and oriented Palpable pulses in both legs Patient is awaiting bed on the floor From my point can be discharged any time with follow-up in my office in about one month Objective: Vital Signs Date Time Temp Pulse Resp B/P (MAP) Pulse Ox O2 Delivery O2 Flow Rate FiO2 12/08/16 10:00 100 12/08/16 08:08 93 21 12/08/16 08:00 118 12/08/16 08:00 100.6 115 27 153/77 (102) 97 12/08/16 07:00 95 Room Air 12/08/16 06:00 107 12/08/16 04:00 100.1 108 24 148/80 (102) 97 12/08/16 04:00 108 12/08/16 02:00 104 12/08/16 00:00 109 12/08/16 00:00 100.5 109 23 157/70 (99) 95 12/07/16 22:00 103 12/07/16 20:22 98 12/07/16 20:00 104 12/07/16 20:00 99.1 104 24 148/69 (95) 96 12/07/16 19:00 96 Room Air 12/07/16 18:00 100 12/07/16 16:00 99.1 94 22 158/73 (101) 95 12/07/16 16:00 93 12/07/16 15:30 21 12/07/16 14:00 99 12/07/16 12:42 20 Result Diagram: 12/06/16 1120 12/07/16 1731 Beatriz Alfonso MD Dec 08, 2016 12:15
--- NOTE | 2016-12-08 13:35 | HHI.PR ---
Subjective Remarks resting in bed , stated right leg still hurting badly not able to walk much , he lives in [place] , not able to to fill up plavix and pain meds since it is the weekend and due to the weather special circumstances Objective Vitals Vital Signs Date Time Temp Pulse Resp B/P (MAP) Pulse Ox O2 Delivery O2 Flow Rate FiO2 12/08/16 12:00 118 12/08/16 12:00 99.6 103 17 136/68 (90) 96 12/08/16 12:00 98.4 118 28 141/74 (96) 97 12/08/16 10:00 100 12/08/16 08:08 93 21 12/08/16 08:00 118 12/08/16 08:00 100.6 115 27 153/77 (102) 97 12/08/16 07:00 95 Room Air 12/08/16 06:00 107 12/08/16 04:00 100.1 108 24 148/80 (102) 97 12/08/16 04:00 108 12/08/16 02:00 104 12/08/16 00:00 109 12/08/16 00:00 100.5 109 23 157/70 (99) 95 12/07/16 22:00 103 12/07/16 20:22 98 12/07/16 20:00 104 12/07/16 20:00 99.1 104 24 148/69 (95) 96 12/07/16 19:00 96 Room Air 12/07/16 18:00 100 12/07/16 16:00 99.1 94 22 158/73 (101) 95 12/07/16 16:00 93 12/07/16 15:30 21 12/07/16 14:00 99 I/O 12/07/16 12/07/16 12/07/16 12/08/16 12/08/16 12/08/16 06:59 14:59 22:59 06:59 14:59 22:59 Intake Total 1120 ml 125 ml 352 ml 154 ml Output Total 925 ml 700 ml 1225 ml 475 ml Balance 195 ml 125 ml -348 ml -1071 ml -475 ml Intake Oral 120 ml 120 ml IV Total 1000 ml 125 ml 352 ml 34 ml Output Urine Total 925 ml 700 ml 1225 ml 475 ml # Voids 5 # Bowel Movements 0 0 0 Result Diagram: 12/06/16 1120 12/07/16 1731 Objective Remarks GENERAL: This is a well-nourished, well-developed patient, INAD. Lying in hospital bed. Appears comfortable. SKIN: No rashes, ecchymoses or lesions. Cool and dry. HEAD: Atraumatic. Normocephalic. EYES: EOMI. No scleral icterus. No injection or drainage. ENT: Nose without bleeding, purulent drainage. Airway patent. NECK: Trachea midline. Supple. CARDIOVASCULAR: Regular rate and rhythm, 3/6 systolic murmur R USB. Faint right DP pulse noted with doppler. RESPIRATORY: Clear to auscultation. Breath sounds equal bilaterally. No wheezes , rales, or rhonchi. GASTROINTESTINAL: Abdomen soft, non-tender, nondistended. No guarding. MUSCULOSKELETAL: Extremities without clubbing, cyanosis. Right calf firm and tender to palpation. NEUROLOGICAL: Awake and alert. Motor and sensory grossly within normal limits. Normal speech. Procedures 12/06 Right leg Angiogram, thrombolysis A/P Problem List: (1) Thrombosis of arteries of lower extremity ICD Code: I74.3 - Embolism and thrombosis of arteries of the lower extremities (2) Peripheral vascular disease ICD Code: I73.9 - Peripheral vascular disease, unspecified Status: Acute (3) Hypertension ICD Code: I10 - Essential (primary) hypertension Status: Chronic (4) Type 2 diabetes mellitus ICD Code: E11.9 - Type 2 diabetes mellitus without complications Status: Chronic Assessment and Plan 66 y/o male s/p fem/pop bypass in July 2015 who presented to ED with progressively worsening right foot pain. Occluded femoral popliteal bypass Ischemic right foot pain, improved - pain management: [place] PRN, Morphine IV PRN breakthrough pain - Dr. Alfonso following, appreciate recommendations. Discussed with Dr. Alfonso patients complaints of right leg cramping, calf tenderness/firmness - per Dr. Hayes to be expected following revascularization, no doppler needed - s/p right leg angiogram , thrombolysis by IR - stenosis at distal fem-pop graft anastamosis treated with H[employer]ILL SUPERVISOR, runoff stable and adequate. TPA discontinued. Heparin drip discontinued 12/07, Plavix started, appreciate Dr. Hayes help,need PT leg is till painfull will also need to fill up plavix and pain meds which is difficult to happened due to the weather issue and [place] Hypertension HLD - controlled - continue home medications Procardia XL 60mg daily and Lisinopril 40mg daily - continue patient on home Atorvastatin 20mg daily - monitor bp and adjust treatment as needed Type 2 Diabetes Mellitus - Accu-Cheks before meals and at bedtime with low-dose NovoLog sliding scale coverage - Hypoglycemia protocol - Monitor trends and blood glucose readings and adjust treatments as indicated - home Metformin and Glimepiride on hold DVT prophylaxis - on heparin Problem Qualifiers (1) Type 2 diabetes mellitus: Al Mars MD Dec 08, 2016 13:35
[2016-12-08] MEDS: ACETAMINOPHEN 325 MG TAB PO PRN (16:24)
[2016-12-08] MEDS: ATORVASTATIN 20 MG TAB PO SCH (19:53)
[2016-12-08] MEDS: oxyCODONE/ACETAMINOPHEN 5 MG/325 MG TAB PO PRN (19:57)
[2016-12-09] VITALS (7 sets, daily range): BP systolic 117–136; BP diastolic 60–66; PULSE 87–98; RESP 17–20; TEMP 98.9–100.4; O2SAT 92–97
[2016-12-09] MEDS: oxyCODONE/ACETAMINOPHEN 5 MG/325 MG TAB PO PRN (05:41)
[2016-12-09] MEDS: INSULIN ASPART SUPPLEMENTAL SCALE SQ SCH ×4 (05:42→20:42)
[2016-12-09] MEDS: SODIUM CHLORIDE 0.9% FLUSH 10 ML FLUSH IV FLUSH SCH ×2 (08:39→20:41)
[2016-12-09] MEDS: NIFEdipine 60 MG SUSTAINED RELEASE TAB PO SCH (08:39)
[2016-12-09] MEDS: DOCUSATE SODIUM 50 MG/SENNA 8.6 MG TAB PO SCH ×2 (08:39→20:41)
[2016-12-09] MEDS: CLOPIDOGREL 75 MG TAB PO SCH (08:40)
[2016-12-09] MEDS: LISINOPRIL 20 MG TAB PO SCH (08:40)
[2016-12-09] MEDS: DOCUSATE SODIUM 100 MG CAP PO SCH ×2 (08:40→20:40)
--- NOTE | 2016-12-09 11:54 | PD.CAR.PN ---
CVT Progress Note Subjective/Hospital Course: Patient seen and evaluated Full consult dictated Ischemia of the right leg probably due to femoropopliteal bypass occlusion CTA with runoff pending Will tailor therapy based on the finding of the CTA Shawn Hayes 12/06/16 Patient doing very well this morning He has palpable femoral pulse strong dopplerable popliteal dorsalis pedis and posterior tibial pulses Foot is warm Patient clearly has clinical reestablishment of the previously occluded femoropopliteal graft and once confirmed by angiogram, will discontinue TPA and continue patient on IV heparin and then switched on by mouth anticoagulant probably factor X a inhibitor In addition completion angiogram and may reveal if patient has any stenotic areas in the distal popliteal or anastomotic area which can be been remedied with the balloon as well. Once the TPA discontinued patient will be transferred to the floor Critical care 35 minutes 12/07/16 Patient is doing great at this time he has a palpable femoral pulse and strong dopplerable popliteal dissolves pedis and posterior tibial pulses Foot is warm Patient underwent successful tPA lysis of the femoropopliteal graft and balloon angioplasty of the distal graft anastomosis and the popliteal artery Patient remains on IV heparin and at this point we can discontinue heparin in place patient on Plavix Out of bed Transferred to floor All things equal patient will be discharged when storm passes 12/08/16 Patient doing well Awake alert and oriented Palpable pulses in both legs Patient is awaiting bed on the floor From my point can be discharged any time with follow-up in my office in about one month 12/09/16 Patient is excellent distal pulses Ambulate ad juli. Patient can be discharged from my point any time and can follow-up in my office in about a month Objective: Vital Signs Date Time Temp Pulse Resp B/P (MAP) Pulse Ox O2 Delivery O2 Flow Rate FiO2 12/09/16 09:10 21 12/09/16 08:44 98.9 87 19 127/62 (83) 12/09/16 00:12 99.6 98 20 117/66 (83) 97 12/08/16 20:21 98.9 94 20 124/57 (79) 95 12/08/16 20:02 Room Air 12/08/16 18:25 100.1 12/08/16 17:37 100.8 12/08/16 16:00 101.8 103 18 138/68 (91) 95 12/08/16 12:00 118 12/08/16 12:00 99.6 103 17 136/68 (90) 96 12/08/16 12:00 98.4 118 28 141/74 (96) 97 Result Diagram: 12/06/16 1120 12/07/16 1731 Beatriz Alfonso MD Dec 09, 2016 11:54
[2016-12-09] MEDS ORDERED: OXYC1TAB63 PO (16:20)
[2016-12-09] MEDS ORDERED: PLAV75TA29 PO (16:20)
--- NOTE | 2016-12-09 16:24 | HHI.PR ---
Subjective Remarks Doing well, still having some swelling in the leg will work with PT, cleared by CPS or discharge if able to ambulate well Objective Vitals Vital Signs Date Time Temp Pulse Resp B/P (MAP) Pulse Ox O2 Delivery O2 Flow Rate FiO2 12/09/16 12:00 99.3 98 19 127/61 (83) 97 12/09/16 09:10 21 12/09/16 08:44 98.9 87 19 127/62 (83) 12/09/16 00:12 99.6 98 20 117/66 (83) 97 12/08/16 20:21 98.9 94 20 124/57 (79) 95 12/08/16 20:02 Room Air 12/08/16 18:25 100.1 12/08/16 17:37 100.8 I/O 12/08/16 12/08/16 12/08/16 12/09/16 12/09/16 12/09/16 07:00 15:00 23:00 07:00 15:00 23:00 Intake Total 154 ml 240 ml Output Total 1225 ml 475 ml 200 ml 550 ml Balance -1071 ml -475 ml 40 ml -550 ml Intake Oral 120 ml 240 ml IV Total 34 ml Output Urine Total 1225 ml 475 ml 200 ml 550 ml # Voids 0 # Bowel Movements 0 0 Result Diagram: 12/06/16 1120 12/07/16 1731 Objective Remarks GENERAL: This is a well-nourished, well-developed patient, INAD. Lying in hospital bed. Appears comfortable. SKIN: No rashes, ecchymoses or lesions. Cool and dry. HEAD: Atraumatic. Normocephalic. EYES: EOMI. No scleral icterus. No injection or drainage. ENT: Nose without bleeding, purulent drainage. Airway patent. NECK: Trachea midline. Supple. CARDIOVASCULAR: Regular rate and rhythm, 3/6 systolic murmur R USB. Faint right DP pulse noted with doppler. RESPIRATORY: Clear to auscultation. Breath sounds equal bilaterally. No wheezes , rales, or rhonchi. GASTROINTESTINAL: Abdomen soft, non-tender, nondistended. No guarding. MUSCULOSKELETAL: Extremities without clubbing, cyanosis. Right calf firm and tender to palpation. NEUROLOGICAL: Awake and alert. Motor and sensory grossly within normal limits. Normal speech. Procedures 12/06 Right leg Angiogram, thrombolysis A/P Problem List: (1) Thrombosis of arteries of lower extremity ICD Code: I74.3 - Embolism and thrombosis of arteries of the lower extremities (2) Peripheral vascular disease ICD Code: I73.9 - Peripheral vascular disease, unspecified Status: Acute (3) Hypertension ICD Code: I10 - Essential (primary) hypertension Status: Chronic (4) Type 2 diabetes mellitus ICD Code: E11.9 - Type 2 diabetes mellitus without complications Status: Chronic Assessment and Plan 66 y/o male s/p fem/pop bypass in July 2015 who presented to ED with progressively worsening right foot pain. Occluded femoral popliteal bypass Ischemic right foot pain, improved - pain management: [place] PRN, Morphine IV PRN breakthrough pain - Dr. Alfonso following, appreciate recommendations. Discussed with Dr. Alfonso patients complaints of right leg cramping, calf tenderness/firmness - per Dr. Hayes to be expected following revascularization, no doppler needed - s/p right leg angiogram , thrombolysis by IR - stenosis at distal fem-pop graft anastamosis treated with ROTATING EQUIPMENT SPECIALIST, runoff stable and adequate. TPA discontinued. Heparin drip discontinued 12/07, Plavix started, appreciate Dr. Hayes help, cleared by him for discharge, patient complained of pain in his leg, will do PT to assess his mobility and then rn field case manager will arrange for safe discharge Hypertension HLD - controlled - continue home medications Procardia XL 60mg daily and Lisinopril 40mg daily - continue patient on home Atorvastatin 20mg daily - monitor bp and adjust treatment as needed Type 2 Diabetes Mellitus - Accu-Cheks before meals and at bedtime with low-dose NovoLog sliding scale coverage - Hypoglycemia protocol - Monitor trends and blood glucose readings and adjust treatments as indicated - home Metformin and Glimepiride on hold DVT prophylaxis - on heparin Discharge Planning Today if safe discharge can be arranged Problem Qualifiers (1) Type 2 diabetes mellitus: Al Mars MD Dec 09, 2016 16:24
--- NOTE | 2016-12-09 16:26 | HHI.DS ---
Discharge Summary Admission Date Dec 05, 2016 at 15:16 Discharge Date: Dec 10, 2016 Admitting Diagnosis peripheral vascular disease with claudication (1) Thrombosis of arteries of lower extremity ICD Code: I74.3 - Embolism and thrombosis of arteries of the lower extremities (2) Peripheral vascular disease ICD Code: I73.9 - Peripheral vascular disease, unspecified Status: Acute (3) Hypertension ICD Code: I10 - Essential (primary) hypertension Status: Chronic (4) Type 2 diabetes mellitus ICD Code: E11.9 - Type 2 diabetes mellitus without complications Status: Chronic Procedures 12/06 Right leg Angiogram, thrombolysis Brief History - From Admission Written by Yesica Klein, acting as scribe for Dr. [place] on 12/05/16 at 23:01. Severe right foot pain with skin color changes. The pain has been present for 1 week. He also noted a "sore" on the side of the foot. July 2016: fem/pop bypass by Dr. Waters. Denies any recent black or red stool, hematuria, nausea, vomiting. . CBC/BMP: 12/06/16 1120 12/07/16 1731 Significant Findings Laboratory Tests Test 12/07/16 00:38 12/07/16 08:08 12/07/16 17:31 Activated Partial Thromboplast Time 41.5 SEC (24.3-30.1) 48.8 SEC (24.3-30.1) Estimat Glomerular Filtration Rate 67 ML/MIN (>89) PE at Discharge GENERAL: This is a well-nourished, well-developed patient, INAD. Lying in hospital bed. Appears comfortable. SKIN: No rashes, ecchymoses or lesions. Cool and dry. HEAD: Atraumatic. Normocephalic. EYES: EOMI. No scleral icterus. No injection or drainage. ENT: Nose without bleeding, purulent drainage. Airway patent. NECK: Trachea midline. Supple. CARDIOVASCULAR: Regular rate and rhythm, 3/6 systolic murmur R USB. Faint right DP pulse noted with doppler. RESPIRATORY: Clear to auscultation. Breath sounds equal bilaterally. No wheezes , rales, or rhonchi. GASTROINTESTINAL: Abdomen soft, non-tender, nondistended. No guarding. MUSCULOSKELETAL: Extremities without clubbing, cyanosis. Right calf firm and tender to palpation. NEUROLOGICAL: Awake and alert. Motor and sensory grossly within normal limits. Normal speech. Hospital Course 66 y/o male s/p fem/pop bypass in July 2015 who presented to ED with progressively worsening right foot pain. Occluded femoral popliteal bypass, Ischemic right foot pain, improved, pain management: [place] PRN, Morphine IV PRN breakthrough pain Dr. Alfonso following, appreciate recommendations. Discussed with Dr. Alfonso patients complaints of right leg cramping, calf tenderness/firmness - per Dr. Hayes to be expected following revascularization, no doppler needed s/p right leg angiogram , thrombolysis by IR - stenosis at distal fem-pop graft anastamosis treated with LEGAL DEPARTMENT MANAGER, runoff stable and adequate. TPA discontinued. Heparin drip discontinued 12/07, Plavix started, appreciate Dr. Hayes help, cleared by him for discharge, patient complained of pain in his leg, will do PT to assess his mobility and then social work case manager will arrange for safe discharge Re: Hypertension hyperlipidemia and diabetes mellitus, we continue home med with AccuChek and insulin coverage Pt Condition on Discharge: Good Discharge Disposition: Discharge Home Discharge Time: > 30 minutes Discharge Instructions DIET: Follow Instructions for: Heart Healthy Diet, Diabetic Diet Activities you can perform: Weight Bearing as [place] New Medications: Clopidogrel (Plavix) 75 Mg Tab 75 MG PO DAILY for pvd, #30 TAB Oxycodone-Acetaminophen (Oxycodone-Acetaminophen) 5-325 mg Tab 1 TAB PO Q4H PRN for pain 3-6, #20 TAB Continued Medications: Atorvastatin (Atorvastatin) 20 Mg Tab 20 MG PO HS for Cholesterol Management, #30 TAB 0 Refills Benazepril (Benazepril) 40 Mg Tab 40 MG PO DAILY for Blood Pressure Management, #30 TAB 0 Refills Glimepiride (Glimepiride) 2 Mg Tab 2 MG PO DAILY for Blood Sugar Management, #30 TAB 0 Refills Take with breakfast or first main meal Metformin (Metformin) 500 Mg Tab 500 MG PO BIDPC for Blood Sugar Management, #60 TAB 0 Refills With meals Nifedipine ER 24 HR (Nifedipine ER 24 HR) 60 Mg Tab 60 MG PO DAILY, #30 TAB 0 Refills Al Mars MD Dec 09, 2016 16:25
[2016-12-09] MEDS: ACETAMINOPHEN 325 MG TAB PO PRN (17:17)
[2016-12-09] MEDS: ATORVASTATIN 20 MG TAB PO SCH (20:41)
[2016-12-10 00:39] VITALS: BP 126/67; PULSE 100; RESP 20; TEMP 100.5; O2SAT 94
[2016-12-10] MEDS: ACETAMINOPHEN 325 MG TAB PO PRN (03:25)
[2016-12-10 04:10] VITALS: BP 140/67; PULSE 101; RESP 20; TEMP 100.6; O2SAT 94
[2016-12-10] MEDS: INSULIN ASPART SUPPLEMENTAL SCALE SQ SCH ×2 (05:46→11:00)
[2016-12-10 08:00] VITALS: BP 127/63; PULSE 88; RESP 18; TEMP 98.1; O2SAT 94
[2016-12-10] MEDS: DOCUSATE SODIUM 100 MG CAP PO SCH (09:33)
[2016-12-10] MEDS: CLOPIDOGREL 75 MG TAB PO SCH (09:33)
[2016-12-10] MEDS: LISINOPRIL 20 MG TAB PO SCH (09:33)
[2016-12-10] MEDS: DOCUSATE SODIUM 50 MG/SENNA 8.6 MG TAB PO SCH (09:33)
[2016-12-10] MEDS: NIFEdipine 60 MG SUSTAINED RELEASE TAB PO SCH (09:34)
[2016-12-10] MEDS ORDERED: WALKER WHEELS/F1 MIS (12:22)
--- NOTE | 2016-12-10 12:57 | HHI.PR ---
Subjective Remarks Doing well, the right leg much less swell today, patient assessed for PT he can go home with wheeled walker Objective Vitals Vital Signs Date Time Temp Pulse Resp B/P (MAP) Pulse Ox O2 Delivery O2 Flow Rate FiO2 12/10/16 08:00 98.1 88 18 127/63 (84) 94 12/10/16 04:10 100.6 101 20 140/67 (91) 94 12/10/16 00:39 100.5 100 20 126/67 (86) 94 12/09/16 20:21 99.4 98 20 125/60 (81) 92 12/09/16 18:12 100.1 12/09/16 18:07 94 21 12/09/16 16:00 100.4 98 17 136/64 (88) 94 I/O 12/09/16 12/09/16 12/09/16 12/10/16 12/10/16 12/10/16 07:00 15:00 23:00 07:00 15:00 23:00 Intake Total 840 ml Output Total 550 ml Balance -550 ml 840 ml Intake Oral 840 ml Output Urine Total 550 ml # Voids 0 2 0 # Bowel Movements 1 Result Diagram: 12/06/16 1120 12/07/16 1731 Objective Remarks GENERAL: This is a well-nourished, well-developed patient, INAD. Lying in hospital bed. Appears comfortable. SKIN: No rashes, ecchymoses or lesions. Cool and dry. HEAD: Atraumatic. Normocephalic. EYES: EOMI. No scleral icterus. No injection or drainage. ENT: Nose without bleeding, purulent drainage. Airway patent. NECK: Trachea midline. Supple. CARDIOVASCULAR: Regular rate and rhythm, 3/6 systolic murmur R USB. Faint right DP pulse noted with doppler. RESPIRATORY: Clear to auscultation. Breath sounds equal bilaterally. No wheezes , rales, or rhonchi. GASTROINTESTINAL: Abdomen soft, non-tender, nondistended. No guarding. MUSCULOSKELETAL: Extremities without clubbing, cyanosis. Right calf firm and tender to palpation. NEUROLOGICAL: Awake and alert. Motor and sensory grossly within normal limits. Normal speech. Procedures 12/06 Right leg Angiogram, thrombolysis A/P Problem List: (1) Thrombosis of arteries of lower extremity ICD Code: I74.3 - Embolism and thrombosis of arteries of the lower extremities (2) Peripheral vascular disease ICD Code: I73.9 - Peripheral vascular disease, unspecified Status: Acute (3) Hypertension ICD Code: I10 - Essential (primary) hypertension Status: Chronic (4) Type 2 diabetes mellitus ICD Code: E11.9 - Type 2 diabetes mellitus without complications Status: Chronic Assessment and Plan 66 y/o male s/p fem/pop bypass in July 2015 who presented to ED with progressively worsening right foot pain. Occluded femoral popliteal bypass Ischemic right foot pain, improved - pain management: [place] PRN, Morphine IV PRN breakthrough pain - Dr. Alfonso following, appreciate recommendations. Discussed with Dr. Alfonso patients complaints of right leg cramping, calf tenderness/firmness - per Dr. Hayes to be expected following revascularization, no doppler needed - s/p right leg angiogram , thrombolysis by IR - stenosis at distal fem-pop graft anastamosis treated with NEEDLE FELT MAKING MACHINE OPERATOR, runoff stable and adequate. TPA discontinued. Heparin drip discontinued 12/07, Plavix started, appreciate Dr. Hayes help, cleared by him for discharge, patient complained of pain in his leg, PT assess the patient, he can go home with wheeled walker, right leg much less swollen, discussed with the patient, agree with discharge planning Hypertension HLD - controlled - continue home medications Procardia XL 60mg daily and Lisinopril 40mg daily - continue patient on home Atorvastatin 20mg daily - monitor bp and adjust treatment as needed Type 2 Diabetes Mellitus - Accu-Cheks before meals and at bedtime with low-dose NovoLog sliding scale coverage - Hypoglycemia protocol - Monitor trends and blood glucose readings and adjust treatments as indicated - home Metformin and Glimepiride on hold DVT prophylaxis - on heparin Discharge Planning Today if safe discharge can be arranged Problem Qualifiers (1) Type 2 diabetes mellitus: Al Mars MD Dec 10, 2016 12:57
== END 2016-12-10 13:53 | disposition home or self-care (01) | DRG 254 ==
LOC: NEPD 13:00 → NEDA 15:16 → HPAC 20:10 → N03B 21:51 → N07A 12-08 12:48
PROVIDERS: ADMIT Hospitalist; ATTEND Hospitalist
PROC: 3E05317 Introduction of Other Thrombolytic into Peripheral Artery, Percutaneous Approach (ICD-10-PCS; 2016-12-05)
PROC: B41F1ZZ Fluoroscopy of Right Lower Extremity Arteries using Low Osmolar Contrast (ICD-10-PCS; 2016-12-05)
PROC: 047M3ZZ Dilation of Right Popliteal Artery, Percutaneous Approach (ICD-10-PCS; principal; 2016-12-06)
DX: T82.868A Thrombosis due to vascular prosthetic devices, implants and grafts, initial encounter (principal); E11.51 Type 2 diabetes mellitus with diabetic peripheral angiopathy without gangrene; I10 Essential (primary) hypertension; T82.858A Stenosis of other vascular prosthetic devices, implants and grafts, initial encounter; F17.210 Nicotine dependence, cigarettes, uncomplicated; E78.5 Hyperlipidemia, unspecified; Y83.2 Surgical operation with anastomosis, bypass or graft as the cause of abnormal reaction of the patient, or of later complication, without mention of misadventure at the time of the procedure; Z79.84 Long term (current) use of oral hypoglycemic drugs
CPT/HCPCS: 36247; 37211; 37213; 37224; 75635; 75710; 75774; 76937; 80048; 82565; 82948; 85025; 85027; 85384; 85610; 85730; 87641; 96361; 96365; 96366; 96372; 96375; 96376; 99152; 99153; C1725; C1757; C1760; C1769; C1884; C1887; C1894; G0378; J0690; J1644; J2250; J2270; J2405; J2997; J3010; J7030; J7040; Q9967

== ENCOUNTER 2017-04-17 07:01 | Day surgery (SDC) | payer OTHER ==
[~2017-04-17] VITALS: Ht 185.4 cm; Wt 103.2 kg
[2017-04-17] VITALS (9 sets, daily range): BP systolic 131–158; BP diastolic 71–90; PULSE 72–98; RESP 17–20; TEMP 97.9; O2SAT 92–97
[~2017-04-17 07:01] MED LIST changes: +OXYC1TAB63 PO; +PLAV75TA29 PO; +WALKER WHEELS/F1 MIS
[2017-04-17] MEDS ORDERED: IODIXANOL 320 MG/ML 50 ML VIAL (for RAD SPEC) I-ARTERIAL ONE (07:02)
[2017-04-17] MEDS ORDERED: SODIUM CHLOR 0.9% 1000 ML INJ 1,000 ML IV SCH ×2 (07:45→10:58)
[2017-04-17] MEDS ORDERED: ASPI81TA81 PO (07:51)
[2017-04-17 08:32] LABS: BASOPHIL # 0.1 TH/MM3 (0-0.2); BASOPHIL % 0.8 % (0.0-2.0); EOSINOPHIL # 0.3 TH/MM3 (0-0.4); EOSINOPHIL % 2.7 % (0.0-4.0); HEMATOCRIT 37.1 % (39.0-51.0); HEMOGLOBIN 12.3 GM/DL (13.0-17.0); LYMPH % 19.5 % (9.0-44.0); LYMPHOCYTE # 2.2 TH/MM3 (1.0-4.8); MEAN CELL VOLUME 90.9 FL (80.0-100.0); MEAN CORPUSCULAR HEMOGLOBIN 30.1 PG (27.0-34.0); MEAN CORPUSCULAR HGB CONC 33.1 % (32.0-36.0); MEAN PLATELET VOLUME 8.2 FL (7.0-11.0); MONO % 7.4 % (0.0-8.0); MONOCYTE # 0.9 TH/MM3 (0-0.9); NEUT % 69.6 % (16.0-70.0); PLATELET COUNT 297 TH/MM3 (150-450); RED BLOOD COUNT 4.08 MIL/MM3 (4.50-5.90); RED CELL DISTRIBUTION WIDTH 13.8 % (11.6-17.2); WHITE BLOOD COUNT 11.4 TH/MM3 (4.0-11.0)
[2017-04-17 08:40] LABS: PROTHROMBIN TIME - PATIENT 10.5 SEC (9.8-11.6)
[2017-04-17 09:04] LABS: CALCIUM 9.5 MG/DL (8.5-10.1); CREATININE 1.7 MG/DL (0.60-1.30)
[2017-04-17] MEDS ORDERED: fentaNYL CITRATE 250 MCG/5 ML AMP ONE (09:24)
[2017-04-17] MEDS ORDERED: MIDAZOLAM HCL 2 MG/2 ML VIAL ONE (09:24)
[2017-04-17] MEDS ORDERED: SODIUM CHLOR 0.9% 250 ML INJ 0 ML ONE (09:24)
[2017-04-17] MEDS ORDERED: HEPARIN-D5W 25,000 U/250 ML 0 ML ONE (09:31)
[2017-04-17] MEDS ORDERED: SODIUM CHLORIDE 0.9% INJ 10 ML ONE (09:31)
[2017-04-17] MEDS ORDERED: ceFAZolin 2 GM PREMIX 50 ML ONE (10:45)
[2017-04-17] MEDS ORDERED: ACETAMINOPHEN 325 MG TAB PO PRN (11:00)
--- NOTE | 2017-04-17 11:03 | PD.RAD ---
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 Origin of the graft is fibrosed and could not be accessed. Profunda is patent with good collateral flow. Full dictated report to follow See PACS Report for procedural detail/treatment Travis Menezes MD Apr 17, 2017 11:02
--- NOTE | 2017-04-17 16:31 | RADRPT ---
EXAM DATE/TIME: 04/17/2017 10:40 [place] COMPARISON: F/U THRU EXISTING CATHETER, December 06, 2016, 9:18. INDICATIONS : Patient with history of PAD. Has clotted bypass graft. MEDICAL HISTORY : 1. Thrombis of lower extremity 2. PAD 3. HTN 4. DM SURGICAL HISTORY : 1. Fem-pop bypass 07/2016 ENCOUNTER: Initial ACUITY: 2 months PAIN SCORE: 0/10 FLUORO TIME: 23.8 minutes IMAGE SERIES: 5 ACCESS SITE: Left Femoral artery SEDATION TIME: 60 minutes MEDICATION(S): 1.) 3.5 mg midazolam (Versed) IV 2.) 200 mcg fentanyl (Sublimaze) IV 3.) 2 g cefazolin (Ancef) IV 4.) 3000 units Heparin IV Intra-procedural antibiotics were given as prescribed above. DEVICE(S): 1.) Left common femoral artery 6 fr Angio-Seal PROCEDURE : 1. Ultrasound-guided puncture of the access site. 2. Angiography of the access site prior to closure device. 3. Conscious sedation with continuous EKG and Oximetry monitoring. 4. Percutaneous closure of the access site. 5. Angiography of the right pelvis 6. Angiography of the right leg The patient is a 66-year-old who underwent right common femoral to above knee popliteal bypass graft placement. The patient's graft was thrombolysed 12/06/16. The patient presents today with reocclusion o f the graft. The risks, benefits and alternatives to the procedure were explained and verbal and written consent w as obtained. The site was prepped in sterile fashion. Full sterile technique was used, including ca p, mask, sterile gloves and gown and a large sterile sheet. Hand hygiene and 2% chlorhexidine and/or betadine/alcohol prep was utilized per protocol for cutaneous antisepsis. Sterile gel and sterile p robe cover were utilized for ultrasound guidance. The skin and subcutaneous tissues were infiltrated with local anesthetic solution. With ultrasound and fluoroscopic guidance the left common femoral artery was punctured and a vascular sheath was placed. Angiography of the common femoral artery was performed for evaluation prior to p ercutaneous closure device placement. A 0.035 angle Glidewire and Omni Flush catheter were advanced over the bifurcation. Angiography of th e right common femoral artery and right lower extremity was performed. Results: The examination demonstrates complete occlusion of the patient's femoral to above knee popliteal bypa ss graft. There is occlusion of the [place] superficial femoral artery. The profunda femoral is patent . The origin is moderately diseased. Attention was then directed towards the patient's occluded graft. A 6 [place] sheath was advanced over the bifurcation. A 0.035 angle Glidewire and Berenstein catheter were used in an attempt to access t he patient's occluded graft. The origin of the graft and the proximal common femoral could be identif ied however, in spite of good purchase with the Berenstein catheter and glide wire the origin of the graft could never be accessed. The procedure was terminated at this point. Hemostasis was obtained with the prescribed medicated closure device. Conscious sedation was perform ed with the prescribed dosages and duration as above in the presence of an independent trained radiol ogy nurse to assist in the monitoring of the patient. EKG and oximetry remained stable throughout th e procedure. CONCLUSION: 1. The patient's common femoral to above knee popliteal bypass graft is completely occluded. Numerous attempts were made to access the graft however these were unsuccessful. 2. There is fairly good collateralization from profunda femoral branches to the distal segments of th e SFA and popliteal. Distally, the exam demonstrates two-vessel runoff into the foot via the anterior tibial and peroneal. There is distal reconstitution of the posterior tibial. Travis Menezes MD on April 17, 2017 at 16:12 Board Certified Radiologist. This report was verified electronically.
== END 2017-04-17 15:45 | disposition home or self-care (01) ==
LOC: HRIP 07:01 → HROP 07:01
PROVIDERS: ATTEND Surgery Vascular Surgery
DX: I74.3 Embolism and thrombosis of arteries of the lower extremities (principal); T82.868A Thrombosis due to vascular prosthetic devices, implants and grafts, initial encounter; I10 Essential (primary) hypertension; E11.9 Type 2 diabetes mellitus without complications; E78.00 Pure hypercholesterolemia, unspecified; Z79.84 Long term (current) use of oral hypoglycemic drugs; Z79.82 Long term (current) use of aspirin
CPT/HCPCS: 36246; 75710; 75774; 76937; 80048; 85025; 85610; 85730; 99152; 99153; C1760; C1769; C1887; C1894; G0269; J0690; J1644; J2250; J3010; J7030; Q9967; J7050